=== PATIENT | male | born 1955 | race Caucasian/White ===

== ENCOUNTER 2022-10-24 08:41 | Inpatient (IN) | payer OTHER ==
--- OUTSIDE RECORDS SUMMARY | 2022-10-24 08:47 | XMS REPORT | Continuity of Care Document ---
:1955 Author Organization [facility] t Address [address] [place] [address]. [address] [place] [address] Care Team Providers Name Role Phone PCP, PATIENT DOES NOT HAVE A Primary Care Physician UnavailTeresita Barrientos MD Attending Clinician Unknown, Attending Attending Clinician Unavailable TEREISTA CARDONA Attending Clinician Unavailable Doctor Unassigned, [place] Attending Clinician Unavailable Mac Longo Attending Clinician Radu Aguillon Attending Clinician Pedro Plummer MD Attending Clinician [phone] VISIT, NURSE MAGALYS SLEEP Attending Clinician Unavailable Becka Berrios MA Attending Clinician Unavailable Debbie Espinoza Attending Clinician Pedro Plummer Attending Clinician VISIT, NURSE [place] SLEEP Attending Clinician Unavailable Panchito Santamaria Attending Clinician VISIT, NURSE MAGALYS NIELSEN Attending Clinician Unavailable Tiffanie Alamo Attending Clinician Guanaco Duron Attending Clinician Guanaco Duron Admitting Clinician Payers Payer Name Policy Type Policy Number Effective Date Expiration Date S ource Problems Condition Condition Condition Status Onset Resolution Last Treating Co mments Source Name Details Category Date Date Treatment Clinician Date M23 - M23 - Diagnosis Active 2017-0 2016-07-19 Memoria UNSPECIFIE UNSPECIFIE 07-11 12:58:00 l D INTERNAL D INTERNAL 00:01: He dennys DERANGEME DERANGEME 00 Active 07/11/2016 ELOY [place] Diabetes Diabetes Problem Active 2022-09-22 Memoria mellitus mellitus - 23:02:26 l type 2 type 2 00:00: Shawn (disorder) (disorder) 00 Active 10/28/2014 Problem 09/22/2022 Data migrated from [employer] on 11/11/14. Medical Group,[facility] Internal Medicine [facility] Metabolic Problem Active 2022-09-22 Me moria syndrome X Metabolic 3-24 23:02:26 l (disorder) syndrome X 00:00: He dennys (disorder) 00 Active 06/30/2014 Problem 09/22/2022 Data migrated from [employer] on 10/14/14. Medical Group,[facility] Internal Medicine [facility] 719.41 - 719.41 - Diagnosis Active 2012-05-13 Memoria JOINT JOINT 1-30 12:25:00 l PAIN-SHLD PAIN-SHLD 00:01: Herm yaniv Active 00 05/08/2012 ELOY [place] Hypothyroi Hypothyro Problem Active 2011-042022-09-22 Memoria dism idism 2-26 23:02:26 l (disorder) (disorder) 00:00: He rmann Active 00 04/03/2012 Problem 09/22/2022 Data migrated from [employer] on 09/05/14. Medical Group,[facility] Internal Medicine [facility] No known No known Disease Metho di active active st problems problems Hospit a l Hyperchole Hyperchol Problem Resolve 2021-11-24 Memoria sterolemia esterolemi d 01:45:23 l (disorder) a Serge n (disorder) Resolved Problem 11/24/2021 [facility] [facility] [place] Hypertensi Hypertens Problem Resolve 2021-11-24 Memoria ve charu d 01:45:23 l disorder, disorder, Herm yaniv systemic systemic arterial arterial (disorder) (disorder) Resolved Problem 11/24/2021 Medical Group, [place] 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 01:45:23 l openic thrombocyt Serge n purpura openic (disorder) purpura (disorder) Resolved Problem 11/24/2021 resolved 1960"s Medical Group,[facility] Monoclonal Monoclona Problem Resolve 2021-11-24 Memoria gammopathy l d 01:45:23 l (disorder) gammopathy He rmann (disorder) Resolved Problem 11/24/2021 [facility], [facility] [place] [place] Sleep Sleep Problem Resolve 2021-11-24 Luisito radhika apnea apnea d 01:45:23 l (finding) (finding) Herm yaniv Resolved Problem 11/24/2021 uses cpap machine- will bring on dos Medical Group,[facility] Ankle pain Ankle Problem Active 2022-09-22 M emoria (finding) pain 23:02:26 l (finding) Shawn Active Problem 09/22/2022 [facility] At risk At risk Problem Active 2022-09-22 M emoria for for 23:02:26 l negative negative Serge n response response to to medication medication (finding) (finding) Active Problem 09/22/2022 [facility] Internal Medicine [facility] Benign Benign Problem Active 2022-09-22 Luisito radhika hypertensi hypertensi 23:02:26 l on on Philippi (disorder) (disorder) Active Problem 09/22/2022 Data migrated from [facility] on 09/05/14. [facility] Internal Medicine [facility] Benign Benign Problem Active 2022-09-22 Luisito radhika prostatic prostatic 23:02:26 l hypertroph hypertroph He rmann with with outflow outflow obstructio obstructio n n (disorder) (disorder) Active Problem 09/22/2022 [facility] Osteoarthr Problem Active 2022-09-22 M emoria itis of Osteoarthr 23:02:26 l knee itis of [place]i (disorder) knee (disorder) Active Problem 09/22/2022 Medical Group,[facility] Derangemen Problem Active 2022-09-22 M emoria t of Derangemen 23:02:26 l medial t of [place] meniscus medial (disorder) meniscus (disorder) Active Problem 09/22/2022 Medical Group,[facility] Edema of Edema of Problem Active 2022-09-22 Memoria lower lower 23:02:26 l extremity extremity Herm yaniv (finding) (finding) Active Problem 09/22/2022 Medical Group,[facility] Elevated Elevated Problem Active 2022-09-22 Memoria liver liver 23:02:26 l enzymes enzymes [place] level level (finding) (finding) Active Problem 09/22/2022 Medical Group,[facility] Internal Medicine [place] Foot pain Foot pain Problem Active 2022-09-22 Memoria (finding) (finding) 23:02:26 l Active Shawn Problem 09/22/2022 Medical Group, [facility] [place],[facility] Gastroesop Gastroeso Problem Active 2022-09-22 Memoria hageal phageal 23:02:26 l reflux reflux [place] disease disease (disorder) (disorder) Active Problem 09/22/2022 [facility], [facility] Hyperlipid Problem Active 2022-09-22 M emoria emia Hyperlipid 23:02:26 l (disorder) emia Serge n (disorder) Active Problem 09/22/2022 Medical Group,[facility] Internal Medicine [facility] Lesion of Lesion Problem Active 2022-09-22 Memoria skin of of skin of 23:02:26 l face face [place]i (disorder) (disorder) Active Problem 09/22/2022 Medical Group,[facility] Microalbum Microalbu Problem Active 2022-09-22 Memoria inuria minuria 23:02:26 l (finding) (finding) Herm yaniv Active Problem 09/22/2022 Medical [facility] Nocturia Nocturia Problem Active 2022-09-22 Memoria (finding) (finding) 23:02:26 l Active Shawn Problem 09/22/2022 [facility], [facility] [place] Obesity Obesity Problem Active 2022-09-22 Me moria (disorder) (disorder) 23:02:26 l Active Shawn Problem 09/22/2022 [facility], [facility] [place] Obstructiv Obstructi Problem Active 2022-09-22 Memoria e sleep ve sleep 23:02:26 l apnea apnea Shawn syndrome syndrome (disorder) (disorder) Active Problem 09/22/2022 Data migrated from [facility] on 09/05/14. [facility], [facility] [place],[facility] Internal Medicine [facility] Pain Pain Problem Active 2022-09-22 Memor ia (finding) (finding) 23:02:26 l Active Shawn Problem 09/22/2022 Right knee Medical Group,[facility] Patient Patient Problem Active 2022-09-22 M emoria encounter encounter 23:02:26 l status status Shawn (finding) (finding) Active Problem 09/22/2022 [facility] Internal Medicine [place] Plantar Plantar Problem Active 2022-09-22 Me moria fasciitis fasciitis 23:02:26 l (disorder) (disorder) He rmann Active Problem 09/22/2022 [facility], [facility] [place],[facility] Reducible Problem Active 2022-09-22 Me moria umbilical Reducible 23:02:26 l hernia umbilical Shawn (disorder) hernia (disorder) Active Problem 09/22/2022 [facility] Internal Medicine [place] Skin Skin Problem Active 2022-09-22 Memor ia lesion lesion 23:02:26 l (disorder) (disorder) He rmann Active Problem 09/22/2022 [facility] Urinary Urinary Problem Active 2022-09-22 Me moria incontinen incontinen 23:02:26 l ce ce [place]i (finding) (finding) Active Problem 09/22/2022 [facility] ACUTE ACUTE Diagnosis Active 2016-07-26 Mem oria MEDIAL MEDIAL 10:43:00 l MENISCAL MENISCAL Serge n INJURY OF INJURY OF RIGHT RIGHT KNEE-S89.8 KNEE-S89.8 1XA 1XA Active [place] Essential Essential Diagnosis 2022-08-24 2022-08-24 Memoria hypertensi hypertensi 08-21 09:24:20 09:24:20 l on on 19:56: Shawn (disorder) (disorder) 00 08/21/2022 Diagnosis [facility]20[facility] [place] Type II Type II Diagnosis 2022-08-24 2022-08-24 Memoria diabetes diabetes 08-21 09:24:20 09:24:20 l mellitus mellitus 19:56: Serge n without without 00 complicati complicati on on (disorder) (disorder) 08/21/2022 Diagnosis 08/24/2022 Medical Group,[facility] Internal Medicine [place] Finding of Finding Diagnosis 2022-08-24 2022-08-24 Memoria enzyme of enzyme 08-21 09:24:20 09:24:20 l level level 19:56: Shawn (finding) (finding) 00 08/21/2022 Diagnosis 08/24/2022 [facility] [place] Screening Screening Diagnosis 2022-08-24 2022-08-24 Memoria for for 08-21 09:24:20 09:24:20 l malignant malignant 19:56: Herm yaniv neoplasm neoplasm 00 of colon of colon done done 08/21/2022 Diagnosis 08/24/2022 [facility] Internal Medicine [place] Long-term Long-term Diagnosis 2022-08-24 2022-08-24 Memoria current current 08-21 09:24:20 09:24:20 l use of use of 19:56: Shawn drug drug 00 therapy therapy (situation (situation ) ) 08/21/2022 Diagnosis 08/24/2022 [facility] [place] History of Past Illness Condition Condition Condition Status Onset Resolution Last Treating Co mments Source Name Details Category Date Date Treatment Clinician Date Umbilical Diagnosis 2021-042022-02-23 2022-02-23 Memoria hernia Umbilical 04-22 09:44:28 09:44:28 l (disorder) hernia 20:53: Serge n (disorder) 00 02/20/2022 Diagnosis 02/23/2022 [facility] Internal Medicine [place] Type 2 Type 2 Problem 2021-11-24 2021[facility] diabetes diabetes 11-21 01:45:23 01:45:23 l mellitus mellitus 19:36: Serge n without without 00 complicati complicati ons ons 11/21/2021 Medical Group Hypothyroi Hypothyro Problem 2021-11-24 2021-11-24 Memoria dism, idism, 11-21 01:45:23 01:45:23 l unspecifie unspecifie 19:36: He rmann d d 11/21/2021 Medical Group Metabolic Metabolic Problem 2021-11-24 2021-11-24 [facility] syndrome syndrome 11-21 01:45:23 01:45:23 l 11/21/2021 19:36: Serge aguayo 11/24/2021 00 Medical Group Hyperlipid Hyperlipi Problem 2021-11-24 2021-11-24 Memoria emia, demia, 11-21 01:45:23 01:45:23 l unspecifie unspecifie 19:36: He rmann d d 11/21/2021 11/24/2021 Medical Group Essential Essential Problem 2021-11-24 2021-11-24 Memoria (primary) (primary) 11-21 01:45:23 01:45:23 l hypertensi hypertensi 19:36: He rmann on on 11/21/2021 11/24/2021 Medical Group Proteinuri Proteinur Problem 2021-11-24 2021-11-24 minna Vicente, 11-21 01:45:23 01:45:23 l unspecifie unspecifie 19:36: He rmann d d 00 11/21/2021 11/24/2021 Medical Group Obstructiv Obstructi Problem 2021-11-24 2021-11-24 Nydia e sleep ve sleep 11-21 01:45:23 01:45:23 l apnea apnea 19:36: Shawn (adult) (adult) 00 (pediatric (pediatric ) ) 11/21/2021 Medical Group Other long Other Problem 2021-11-24 2021-11-24 Memoria term continuous churn buttermaker 8 01:45:23 01:45:23 l (current) (current) 19:36: Herm yaniv drug drug 00 therapy therapy 11/21/2021 [facility] Group Abnormal Abnormal Problem 2021-11-24 2021-11-24 Memoria levels of levels of 11-21 01:45:23 01:45:23 l other other 19:36: Shawn serum serum 00 enzymes enzymes 11/21/2021 11/24/2021 Medical Group Gastro-eso Gastro-es Problem 2021-08-18 2021-08-18 Memoria phageal ophageal 08-15 01:48:25 01:48:25 l reflux reflux 21:41: Shawn disease disease 00 without without esophagiti esophagiti s s 08/15/2021 08/18/2021 [facility] Group Allergies, Adverse Reactions, Alerts Allergy Allergy Status Severity Reaction(s) Onset Inactive Treating Comm ents Source Name Type Date Date Clinician IBUPROFE DRUG Active Low Hives Univers N INGREDI 10-23 ity of 00:00: [place] 00 [facility] Ibuprofe Propensi Active Itching Unive rs n ty to 10-23 ity of adverse 00:00: [place] reaction 00 Medical s Branch Ibuprofe Propensi Active Itching Metho di n ty to 10-18 st adverse 00:00: Hospita reaction 00 l s to drug ibuprofe ibuprofe Active Memori a n<sup>1< n<sup>1< 6-29 l /sup> /sup> 05:00: [place] 00 NO KNOWN Drug Active Univers ALLERGIE Class ity of S [facility] Social History Social Habit Start Date Stop Date Quantity Comments Source [facility] [place] [facility] Sexual orientation [facility] History of Social 2021-10-18 2021-10-[address] function 00:00:00 00:00:00 Hospital Tobacco use and 2021-10-18 2021-10-18 Smokeless [place] exposure 00:00:00 00:00:00 tobacco non-user Hospital [facility] 2016-07[facility]28 [facility] 19:17:36 Sex [birth year] Universit y of 00:00:00 00:00:00 [facility] Smoking Status Start Date Stop Date Source Tobacco smoking consumption Univ ersity of [facility] Tobacco smoking status [facility] Medications Ordered Filled Start Stop Current Ordering Indication Dosage Frequency Signature Comments Components Source Medication Medication Date Date Medication? Clinician (SIG) Name Name atorvastati Yes 20mg 1 tablet. U nivers n 20 mg 7-17 ity of tablet 10:55: [address] tadalafiL 5 Yes 5mg Take 1 Univ ers mg tablet 7-17 tablet by ity o f 10:55: mouth. [address] levothyroxi Yes 112ug 1 tablet. Univers ne 112 mcg 7-17 ity of tablet 10:55: [address] cephALEXin 202- Yes [id number] 500mg Take 1 Univers (KEFLEX) 7-17 07-25 capsule by ity of 500 mg 00:00: 04:59 mouth 4 [place] capsule 00 :00 (four) Medical times [place] daily for 7 days. esomeprazol Yes 40mg Take 1 Univ ers e 40 mg 6-18 capsule by ity of capsule 00:00: mouth in [place] 00 the morning. Branch atorvastati Yes = 1 tab, Me moria n 20 mg 5-15 PO, l oral tablet 19:55: Bedtime, # Shawn 00 90 tab, 3 Refill(s), [id number], 180.34, cm, 08/21/22 14:01:00 CDT, Height, 111.364, kg, 08/21/22 14:01:00 CDT, Weight carvedilol Yes 12.5 mg = Me moria 12.5 mg 5-15 1 tab, PO, l oral tablet 19:55: BID, # 180 Shawn 00 tab, 3 Refill(s), [facility]: [id number], 180.34, cm, 08/21/22 14:01:00 CDT, Height, 111.364, kg, 08/21/22 14:01:00 CDT, Weight esomeprazol Yes = 1 cap, Me moria e 40 mg 4-21 PO, Daily, l oral 18:22: # 90 cap, Philippi delayed 00 0 release Refill(s), capsule Pharmacy: [id number], 180.34, cm, 05/22/22 14:21:00 [employer] DES[employer], Height, 113.352, kg, 05/22/22 14:21:00 [employer] DES[employer], Weight atorvastati Yes = 1 tab, Me moria n 20 mg 4-21 PO, l oral tablet 18:22: Bedtime, # Shawn 00 90 tab, 0 Refill(s), Pharmacy: [id number], 180.34, cm, 05/22/22 14:21:00 [employer]OR[employer] DESIGN[employer], Height, 113.352, kg, 05/22/22 14: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 metFORMIN 2021-04 Yes 500 mg = 1 Me moria 500 mg oral 1-14 tab, PO, l tablet 20:53: BID-Meals, Mayra nn 00 # 180 tab, 3 Refill(s), Pharmacy: [id number], 180.34, cm, 02/20/22 14:15:00 [employer]ORIST DESIGNER, Height, 114.091, kg, 02/20/22 14:15:00 [employer]ORIST DESIGNER, Weight atorvastati 2021-04 Yes = 1 tab, Me moria n 20 mg 0-07 PO, l oral tablet 18:33: Bedtime, # Philippi 00 90 tab, 0 Refill(s), [id number], 180.34, cm, 11/21/21 14:16:00 CDT, Height, 113.182, kg, 11/21/21 14:16:00 CDT, Weight carvedilol Yes 12.5 mg = Me moria 12.5 mg 8-15 1 tab, PO, l oral tablet 19:35: BID, # 180 Shawn 00 tab, 3 Refill(s), Pharmacy: [id number], 180.34, cm, 11/21/21 14:16:00 CDT, Height, 113.182, kg, 11/21/21 14:16:00 CDT, Weight Synthroid Yes = 1 tab, Luisito radhika 112 mcg 8-15 PO, Daily, l (0.112 mg) 19:35: # 90 tab, He rmann oral tablet 00 3 Refill(s), Pharmacy: [id number], 180.34, cm, 11/21/21 14:16:00 CDT, Height, 113.182, kg, 11/21/21 14:16:00 CDT, Weight TADALAFIL 2021- No Methodi ORAL 10-1812 st 10:04: 00:00 Hospita 53 :00 l levothyroxi Yes Method i ne - st (SYNTHROID) 09:50: Hospit a 112 mcg 15 l tablet atorvastati Yes Method i n calcium 7- st (ATORVASTAT 09:50: Hospit a IN ORAL) 15 l levothyroxi Yes Method i ne 7-12 st (SYNTHROID) 09:50: Hospit a 112 mcg 15 l tablet atorvastati Yes Method i n calcium 7-12 st (ATORVASTAT 09:50: Hospit a IN ORAL) 15 l tadalafiL 2021- No [id number] 5mg Q24H Take 1 Methodi (CIALIS) 5 -03 16- tablet (5 st MG tablet 00:00: 04:59 mg total) Ho spita 00 :00 by mouth l daily as needed for erectile dysfunctio n for up to 30 days. tadalafiL 2021- No [id number] 5mg Q24H Take 1 Methodi (CIALIS) 5 7 08-12 tablet (5 st MG tablet 00:00: 04:59 mg total) Ho spita 00 :00 by mouth l daily as needed for erectile dysfunctio n for up to 30 days. carvediloL Yes Univers 12.5 mg 7-10 ity of tablet 00:00: [address] metFORMIN Yes Univers 500 mg 7-10 ity of tablet 00:00: [address] metFORMIN Yes Methodi (GLUCOPHAGE 7-10 st ) 500 mg 00:00: Hospita tablet 00 l carvediloL Yes Methodi (COREG) 7 st 12.5 MG 00:00: Hospita tablet 00 l metFORMIN Yes Methodi (GLUCOPHAGE 7-10 st ) 500 mg 00:00: Hospita tablet 00 l carvediloL Yes Methodi (COREG) 7 st 12.5 MG 00:00: Hospita tablet 00 l esomeprazol Yes = 1 cap, Me moria e 40 mg 5-09 PO, Daily, l oral 21:45: # 90 cap [place] delayed 00 3 release Refill(s), capsule Pharmacy: [id number], 180.34, cm, 08/15/21 15:16:00 CDT, Height, 114.545, kg, 08/15/21 15:16:00 CDT, Weight Metformin 2020-04 Yes 500 mg = 1 Me moria hydrochlori 1-16 tab, PO, l de 500 MG 15:44: BID-Meals, He rmann Oral Tablet 00 # 180 tab, 3 Refill(s) metFORMIN 2020-04 Yes 500 mg = 1 Me moria 500 mg oral 1-16 tab, PO, l tablet 15:44: BID-Meals, Mayra nn 00 # 180 tab, 3 Refill(s) atorvastati 2020-04 Yes = 1 tab, Me moria n 20 mg 1-01 PO, l oral tablet 21:13: Bedtime, # Philippi 00 90 tab, 3 Refill(s), [id number], 180.34, cm, 02/07/21 15:15:00 CDT, Height, 115, kg, 02/07/21 15:15:00 CDT, Weight empaglifloz 2020-04 Yes 10 mg = 1 M emoria in 10 MG 1-01 tab, PO, l Oral Tablet 21:13: QAM, # 30 H ermann [Jardiance] 00 tab, 11 Refill(s), Pharmacy: [id number], 180.34, cm, 02/07/21 15:15:00 CDT, Height, 115, kg, 02/07/21 15:15:00 CDT, Weight Levothyroxi Yes = 1 tab, Me moria ne Sodium 9-01 PO, Daily, l 0.112 MG 21:42: # 90 tab, Herm yaniv Oral Tablet 00 3 [Synthroid] Refill(s), Pharmacy: [id number], 180.34, cm, 10/18/20 14:23:00 CDT, Height, 116.023, kg, 10/18/20 14:23:00 CDT, Weight tadalafil 5 Yes = 1 tab, Me moria mg oral 6-01 PO, Daily, l tablet 21:45: INSTR:JESENIA Mayra nn 00 GN PROSTATIC HYPERPLASI A, # 90 tab, 3 Refill(s), [facility]acy[id number], 180.34, cm, 07/12/20 14:50:00 CDT, Height, 113.636, kg, 07/12/20 14:50:00 CDT, Weight Esomeprazol Yes = 1 cap, Me moria e 40 MG 1-25 PO, Daily, l Enteric 14:24: # 90 Shawn Coated 00 unknown Capsule unit, 3 Refill(s), [id number], 180.34, cm, 04/12/20 14:40:00 [employer]ORIST DESIGNER, Height, 114.205, kg, 04/12/20 14:40:00 [employer]ORIST DESIGNER, Weight Levothyroxi Yes = 1 tab, Me moria ne Sodium 9-09 PO, Daily, l 0.112 MG 16:08: # 90 tab, Herm yaniv Oral Tablet 00 3 [Synthroid] Refill(s), CAITY, Pharmacy: [id number], 180.34, cm, 10/30/19 15:11:00 CDT, Height, 116.534, kg, 10/30/19 15:11:00 CDT, Weight tadalafil 5 2019-0 Yes = 1 tab, Me moria mg oral 6-09 PO, Daily, l tablet 16:26: # 90 tab, Serge n 13 Refill(s) 3, INSTR:JESENIA GN PROSTATIC HYPERPLASI A, [id number] tadalafil 5 2018- Yes 5 mg = 1 Me moria MG Oral 4-24 tab, PO, l Tablet 16:51: Daily, Shawn [Cialis] 00 Benign Prostatic Hyperplasi a, # 90 tab, 3 Refill(s), Pharmacy: [id number] atorvastati 2017-04 Yes 20 mg = 1 M emoria n 20 mg 2-18 tab, PO, l oral tablet 13:54: Bedtime, # Shawn 00 90 tab, 3 Refill(s), Pharmacy: [id number] Levothyroxi Yes 112 Memori a ne Sodium 9-24 microgram l 0.112 MG 20:58: = 1 tab, Mayra nn Oral Tablet 00 PO, Daily, [Synthroid] Brand Name Medically Necessary, # 90 tab, 3 Refill(s), CAITY, [id number] nebivolol 5 2017-0 Yes 5 mg = 1 Me moria MG Oral 6-15 tab, PO, l Tablet 15:23: Daily, Shawn [Bystolic] 54 Please fax to [facility] [phone], # 90 tab, 2 Refill(s), [id number] Promethazin No Notes: Do M emoria e 08-02 not give l 20:08: IV push. Shawn 00 (Same as: Phenergan) Ondansetron No Notes: Luisito radhika 08-02 (Same as: l 20:08: Zofran) Shawn 00 MEDICATION WASTE Product Size: 4 mg Product Wasted: ___ mg Dexamethaso No Notes: Luisito radhika ne 08-02 Concentrat l 20:08: ion: Shawn 4mg/ml Morphine No Notes: Memoria 08-02 (Same l 20:08: as:MORPhin e Sulfate) Hydromorpho No Notes: Luisito radhika ne 08-02 Same as l 20:08: Dilaudid Acetaminoph No Notes: Max Memoria en 08-02 acetaminop l 20:08: hen 4000 Shawn 00 mg/day (4 gm/day). (Same as: Tylenol Extra Strength) Naloxone No Notes: Memoria 08-02 Same as l 20:08: Narcan Flumazenil No Notes: Memor ia 08-02 (Same as: l 20:08: Romazicon) Labetalol No Notes: Memori a 08-02 (Same as: l 20:08: Normodyne, Shawn 00 Trandate) Push over 2 minutes Give bolus over 2-3 minutes. ANES No Notes: Memoria Enalaprilat 08-02 (Same as: l 20:08: Vasotec-IV ) Hydromorpho No Notes: Luisito radhika ne 08-02 Same as l 20:01: Dilaudid Morphine No Notes: Memoria 08-02 (Same l 20:01: as:MORPhin e Sulfate) acetaminoph No Notes: Do M emoria en-codeine 08-02 not exceed l #3 20:01: 4gm/day of Shawn acetaminop hen. (Same as: Tylenol with Codeine # 3) Acetaminoph No Notes: Do M emoria en - not exceed l 20:01: 4 gm/day. Shawn (Same as: Tylenol) Acetaminoph Yes 1 - 2 tab, Memoria en 300 MG / 08-02 PO, Q4H, l Codeine 19:59: PRN Pain, Mayra nn Phosphate 00 X 14 day, 60 MG Oral # 50 tab, Tablet 0 [Tylenol Refill(s) with Codeine #4] Cephalexin Yes 500 mg = 1 M emoria 500 MG Oral 08-02 cap, PO, l Capsule 19:59: QID, X 3 Serge n [Keflex] 00 day, # 12 cap, 0 Refill(s) ondansetron No Route: IV, Memoria (ANES) 08-02 Drug form: l 19:51: INJ, ONCE, Stop date: 08/02/16 14:51:00 CDT dexamethaso No Route: IV, Memoria ne (ANES) 08-02 Drug form: l 19:50: INJ, ONCE, Stop date: 08/02/16 14:50:00 CDT ceFAZolin No Route: IV, Me moria (ANES) 08-02 Drug form: l 19:36: INJ, ONCE, Stop date: 08/02/16 14:36:00 CDT propofol No Route: IV, Mem oria (ANES) 08-02 Drug form: l 19:36: INJ, ONCE, Stop date: 08/02/16 14:36:00 CDT fentaNYL No Route: IV, Mem oria (ANES) 08-02 Drug form: l 19:35: INJ, ONCE, Stop date: 08/02/16 14:35:00 CDT lidocaine No Route: IV, Me moria (ANES) 08-02 Drug form: l 19:35: INJ, ONCE, Stop date: 08/02/16 14:35:00 CDT midazolam No Route: IV, Me moria (ANES) 08-02 Drug form: l 19:30: SOLN, 00 ONCE, Stop date: 08/02/16 14:30:00 CDT LR 1000 mL No Route: IV, M emoria INJ (ANES) 08-02 Total l 18:54: Volume: Philippi 00 1,000, Start date: 08/02/16 13:54:00 CDT, Stop date: 08/02/16 14:54:00 CDT Tylenol No 1,000 mg, Memor ia 08-02 Route: PO, l 18:00: ONCALL, Dosing Weight 115.455, kg, Start date: 08/02/16 13:00:00 CDT Lidocaine No Notes: Memori a Hydrochlori 08-02 Preservati l de 10 MG/ML 16:00: ve free. He rmann Injectable (Same as: Solution Xylocaine MPF) Calcium No 1,000 mL, Memor ia Chloride 08-02 Rate: 25 l 0.0014 15:40: ml/hr, Shawn MEQ/ML / 00 Infuse Potassium over: 40 Chloride hr, Route: 0.004 IV, Dosing MEQ/ML / Weight Sodium 113.636 Chloride kg, Total 0.103 Volume: MEQ/ML / 1,000, Sodium Start Lactate date: 0.028 08/02/16 MEQ/ML 10:40:00 Injectable CDT, Solution Duration: 30 day, Stop date: 09/01/16 10:39:00 CDT Neurontin No Notes: Memori a 08-02 (Same as: l 11:00: Neurontin) vancomycin No 2001 mg: Me moria + sodium 08-02 infuse l chloride 11:00: over 2.5 Mayra nn 0.9% 500 mL 00 hours INJ (for IV MEDICATION set) 500 mL WASTE Product Size: 1000 mg Product Wasted: ___ mg ceFAZolin No Notes: Memori a 08-02 Same as: l 11:00: Ancef BD Normal No Notes: Memori a Saline 08-02 (Same as: l Flush 11:00: BD Posiflush) oxyCONTIN No Notes: Do Mem oria 08-02 not crush l 11:00: or chew. (Same as: OxyContin) Centrum Yes 1 tab, PO, Luisito radhika Silver -21 Daily, 0 l Men's 19:10: Refill(s) acetaminoph Yes 1,000 mg, M emoria en -21 PO, Daily, l 19:10: as needed Shawn 00 for pain, 0 Refill(s) Acetaminoph 2017-0 Yes 0 Memori a en 4-21 Refill(s) l 19:10: Shawn 00 Immunizations Ordered Immunization Filled Immunization Date Status Commen ts Source Name Name influenza virus 2022-01-09 Completed [facility] vaccine, inactivated 00:00:00 [facility] COVID-19 MRNA 2021-10-28 Completed Meth odist VACCINATION 00:00:00 [facility] PFIZER COVID-19 MRNA 2021-10-28 Completed Meth odist VACCINATION 00:00:00 [facility] [id number] 2021-10-28 Completed Luisito rial Shawn [id number] 00:00:00 [facility] COVID-19 MRNA 2021-03-08 Completed Meth odist VACCINATION 00:00:00 [facility] COVID-19 MRNA 2021-03-08 Completed Meth odist VACCINATION 00:00:00 [facility] [id number] 2021-03-08 Completed Luisito riavitaly Escobar [id number] 00:00:00 influenza virus 2021-01-10 Completed [facility] vaccine, inactivated 00:00:00 [facility] COVID-19 2020-06-05 Completed Method[facility] t MRNA VACCINATION 00:00:00 [facility] COVID-19 2020-06-05 Completed Methodis t MRNA VACCINATION 00:00:00 [facility] [id number] 2020-06-05 Completed Luisito sophia Escobar [id number]<meyers 00:00:00 p>1</sup> [id number] 2020-06-05 Completed Luisito sophia Escobar [id number]<meyers 00:00:00 p>3</sup> [facility] COVID-19 2020-05-08 Completed Method[facility] t MRNA VACCINATION 00:00:00 [facility] COVID-19 2020-05-08 Completed Methodis t MRNA VACCINATION 00:00:00 [facility] [id number] 2020-05-08 Completed Luisito sophia Escobar [id number]<meyers 00:00:00 p>2</sup> [id number] 2020-05-08 Completed Luisito Escobar [id number]<meyers 00:00:00 p>4</sup> influenza virus 2020-02-10 Completed [facility] vaccine, 00:00:00 inactivated<sup>3</s up> influenza virus 2020-02-10 Completed [facility] vaccine, 00:00:00 inactivated<sup>1</s up> influenza virus 2019-02-05 Completed [facility] vaccine, 00:00:00 inactivated<sup>1</s up> influenza virus 2019-02-05 Completed [facility] vaccine, 00:00:00 inactivated<sup>4</s up> influenza virus 2019-02-05 Completed [facility] vaccine, 00:00:00 inactivated<sup>2</s up> Vital Signs Vital Name Observation Time Observation Value Comments Source Systolic blood 2022-10-23 15:50:00 135 mm[Hg] Univer sity of pressure [facility] Diastolic blood 2022-10-23 15:50:00 83 mm[Hg] Unive rsity of [facility] Heart rate 2022-10-23 15:50:00 78 /min [facility] Body temperature 2022-10-23 15:50:00 36.72 [facility] Respiratory rate 2022-10-23 15:50:00 18 /min [facility] Body height 2022-10-23 15:50:00 180.3 cm [facility] Body weight 2022-10-23 15:50:00 111.63 kg [facility] BMI 2022-10-23 15:50:00 34.32 kg/m2 [facility] Oxygen saturation in 2022-10-23 15:50:00 98 /min [facility] Arterial blood by [facility] Pulse oximetry Branch Temperature Oral (F) 2022-08-21 19:01:00 97.5 F [facility] Heart Rate 2022-08-21 19:01:00 [facility] Systolic (mm Hg) 2022-08-21 19:01:00 Luisitocedric cortes Philippi Diastolic (mm Hg) 2022-08-21 19:01:00 Mem o[facility] [place] Height 2022-08-21 19:01:00 5 [ft_i] [facility] Weight 2022-08-21 19:01:00 [facility] BMI Calculated 2022-08-21 19:01:00 Memori al [place] Heart Rate 2022-05-22 20:21:00 [facility] Systolic (mm Hg) 2022-05-22 20:21:00 Luisito rial Philippi Diastolic (mm Hg) 2022-05-22 20:21:00 [facility] o[facility] [place] Height 2022-05-22 20:21:00 5 [ft_i] [facility] Weight 2022-05-22 20:21:00 [facility] BMI Calculated 2022-05-22 20:21:00 Memori al [place] Temperature Oral (F) 2022-02-20 20:15:00 97.8 F [facility] Heart Rate 2022-02-20 20:15:00 [facility] Systolic (mm Hg) 2022-02-20 20:15:00 Luisito rial Shawn Diastolic (mm Hg) 2022-02-20 20:15:00 Mem orial Shawn Height 2022-02-20 20:15:00 5 [ft_i] [facility] Weight 2022-02-20 20:15:00 [facility] BMI Calculated 2022-02-20 20:15:00 Memori al Shawn Temperature Oral (F) 2022-02-09 18:12:00 98.0 F [facility] Heart Rate 2022-02-09 18:12:00 [facility] Systolic (mm Hg) 2022-02-09 18:12:00 Luisito rial Philippi Diastolic (mm Hg) 2022-02-09 18:12:00 [facility] o[facility] [place] Height 2022-02-09 18:12:00 5 [ft_i] [facility] Weight 2022-02-09 18:12:00 [facility] BMI Calculated 2022-02-09 18:12:00 [facility]ori al [place] Temperature Oral (F) 2021-11-21 19:16:00 98.1 F [facility] Heart Rate 2021-11-21 19:16:00 [facility] Systolic (mm Hg) 2021-11-21 19:16:00 Luisito rial Shawn Diastolic (mm Hg) 2021-11-21 19:16:00 Mem orial Shawn Height 2021-11-21 19:16:00 180.34 cm [facility] Weight 2021-11-21 19:16:00 [facility] BMI Calculated 2021-11-21 19:16:00 Memori al Shawn Temperature Oral (F) 2021-08-15 20:16:00 98.4 F [facility] Heart Rate 2021-08-15 20:16:00 [facility] Systolic (mm Hg) 2021-08-15 20:16:00 Luisito rial Philippi Diastolic (mm Hg) 2021-08-15 20:16:00 Mem orial Shawn Height 2021-08-15 20:16:00 180.34 cm [facility] Weight 2021-08-15 20:16:00 [facility] BMI Calculated 2021-08-15 20:16:00 Memori al Shawn Temperature Oral (F) 2021-05-16 20:41:00 97.9 F [facility] Heart Rate 2021-05-16 20:41:00 [facility] Systolic (mm Hg) 2021-05-16 20:41:00 Luisito rial Philippi Diastolic (mm Hg) 2021-05-16 20:41:00 Mem orial Shawn Height 2021-05-16 20:41:00 180.34 cm [facility] Weight 2021-05-16 20:41:00 [facility] BMI Calculated 2021-05-16 20:41:00 Memori al [place] Temperature Oral (F) 2021-02-10 18:23:00 98.0 F [facility] Heart Rate 2021-02-10 18:23:00 [facility] Systolic (mm Hg) 2021-02-10 18:23:00 Luisito rial Philippi Diastolic (mm Hg) 2021-02-10 18:23:00 Mem orial [place]i Height 2021-02-10 18:23:00 180.34 cm [facility] Weight 2021-02-10 18:23:00 [facility] BMI Calculated 2021-02-10 18:23:00 Memori al Shawn Temperature Oral (F) 2021-02-07 20:15:00 98.3 F [facility] Heart Rate 2021-02-07 20:15:00 [facility] Systolic (mm Hg) 2021-02-07 20:15:00 Luisito rial Philippi Diastolic (mm Hg) 2021-02-07 20:15:00 Mem orial Shawn Height 2021-02-07 20:15:00 180.34 cm [facility] Weight 2021-02-07 20:15:00 [facility] BMI Calculated 2021-02-07 20:15:00 Memori al Shawn Systolic (mm Hg) 2020-10-18 19:23:00 Luisito rial Philippi Diastolic (mm Hg) 2020-10-18 19:23:00 Mem orial [place] Heart Rate 2020-10-18 19:23:00 [facility] Height 2020-10-18 19:23:00 180.34 cm [facility] Weight 2020-10-18 19:23:00 [facility] BMI Calculated 2020-10-18 19:23:00 Memori al [place] Systolic (mm Hg) 2020-09-21 15:19:00 Luisito rial Shawn Diastolic (mm Hg) 2020-09-21 15:19:00 Mem orial Shawn Heart Rate 2020-09-21 15:19:00 [facility] Height 2020-09-21 15:19:00 180.34 cm [facility] Weight 2020-09-21 15:19:00 [facility] BMI Calculated 2020-09-21 15:19:00 Memori al [place] Systolic (mm Hg) 2020 19:50:00 Luisito rial Philippi Diastolic (mm Hg) 2020 19:50:00 Mem orial Philippi Heart Rate 2020 19:50:00 [facility] Temperature Oral (F) 2020 19:50:00 98.5 F [facility] Height 2020 19:50:00 180.34 cm [facility] Weight 2020 19:50:00 [facility] BMI Calculated 2020 19:50:00 Memori al Shawn Systolic (mm Hg) 2020-04-12 20:40:00 Luisito rial Shawn Diastolic (mm Hg) 2020-04-12 20:40:00 Mem orial [place]i Heart Rate 2020-04-12 20:40:00 [facility] Height 2020-04-12 20:40:00 180.34 cm [facility] Weight 2020-04-12 20:40:00 [facility] BMI Calculated 2020-04-12 20:40:00 Memori al Shawn Systolic (mm Hg) 2020-01-12 19:45:00 Luisito rial Philippi Diastolic (mm Hg) 2020-01-12 19:45:00 Mem orial [place] Heart Rate 2020-01-12 19:45:00 [facility] Height 2020-01-12 19:45:00 180.34 cm [facility] Weight 2020-01-12 19:45:00 [facility] BMI Calculated 2020-01-12 19:45:00 Memori al Shawn Systolic (mm Hg) 2019-10-30 20:11:00 Luisito rial Philippi Diastolic (mm Hg) 2019-10-30 20:11:00 Mem o[facility] Heart Rate 2019-10-30 20:11:00 [facility] Temperature Oral (F) 2019-10-30 20:11:00 98.2 F [facility] Height 2019-10-30 20:11:00 180.34 cm [facility] Weight 2019-10-30 20:11:00 [facility] BMI Calculated 2019-10-30 20:11:00 [facility] [place] Systolic (mm Hg) 2019-10-13 18:57:00 Luisito rial Philippi Diastolic (mm Hg) 2019-10-13 18:57:00 Mem orial Shawn Heart Rate 2019-10-13 18:57:00 [facility] Temperature Oral (F) 2019-10-13 18:57:00 98.0 F [facility] Height 2019-10-13 18:57:00 180.34 cm [facility] Weight 2019-10-13 18:57:00 [facility] BMI Calculated 2019-10-13 18:57:00 Memori al [place] Systolic (mm Hg) 2019-09-22 16:08:00 Luisito rial Philippi Diastolic (mm Hg) 2019-09-22 16:08:00 Mem orial [facility]i Heart Rate 2019-09-22 16:08:00 [facility] Height 2019-09-22 16:08:00 180.34 cm [facility] Weight 2019-09-22 16:08:00 [facility] BMI Calculated 2019-09-22 16:08:00 Memori al Shawn Systolic (mm Hg) 2019-06-09 20:00:00 Luisito rial Philippi Diastolic (mm Hg) 2019-06-09 20:00:00 Mem orial Shawn Heart Rate 2019-06-09 20:00:00 [facility] Temperature Oral (F) 2019-06-09 20:00:00 98.9 F [facility] Height 2019-06-09 20:00:00 180.34 cm [facility] Weight 2019-06-09 20:00:00 [facility] BMI Calculated 2019-06-09 20:00:00 Memori al Shawn Systolic (mm Hg) 2019-02-10 19:58:00 Luisito rial Shawn Diastolic (mm Hg) 2019-02-10 19:58:00 Mem orial Shawn Heart Rate 2019-02-10 19:58:00 [facility] Temperature Oral (F) 2019-02-10 19:58:00 98.3 F [facility] Height 2019-02-10 19:58:00 180.34 cm [facility] BMI Calculated 2018-10-14 18:08:00 Memori al Shawn Weight 2018-10-14 18:08:00 [facility] Height 2018-10-14 18:08:00 180.34 cm [facility] Heart Rate 2018-10-14 18:08:00 [facility] Temperature Oral (F) 2018-10-14 18:08:00 98.3 F [facility] Systolic (mm Hg) 2018-10-14 18:08:00 Luisito rial Philippi Diastolic (mm Hg) 2018-10-14 18:08:00 Mem orial Philippi Weight 2018-10-01 18:08:00 [facility] Height 2018-10-01 18:08:00 180.34 cm [facility] BMI Calculated 2018-10-01 18:08:00 Memori al Shawn Temperature Oral (F) 2018-10-01 18:08:00 97.8 F [facility] Heart Rate 2018-10-01 18:08:00 [facility] Systolic (mm Hg) 2018-10-01 18:08:00 Luisito rial Philippi Diastolic (mm Hg) 2018-10-01 18:08:00 Mem orial Shawn Weight 2018-09-26 17:54:00 [facility] Heart Rate 2018-09-26 17:54:00 [facility] Systolic (mm Hg) 2018-09-26 17:54:00 Luisito rial Shawn Diastolic (mm Hg) 2018-09-26 17:54:00 Mem o[facility]i Weight 2018-07-31 16:14:00 [facility] BMI Calculated 2018-07-31 16:14:00 Memori al [place] Height 2018-07-31 16:14:00 180.34 cm [facility] Temperature Oral (F) 2018-07-31 16:14:00 98.0 F [facility] Heart Rate 2018-07-31 16:14:00 [facility] Shawn Systolic (mm Hg) 2018-07-31 16:14:00 Luisito rial Shawn Diastolic (mm Hg) 2018-07-31 16:14:00 Mem orial Shawn BMI Calculated 2018-06-10 19:12:00 Memori al [place]i Weight 2018-06-10 19:12:00 [facility] Height 2018-06-10 19:12:00 180.34 cm [facility] Temperature Oral (F) 2018-06-10 19:12:00 98.1 F [facility] Heart Rate 2018-06-10 19:12:00 [facility] Systolic (mm Hg) 2018-06-10 19:12:00 Luisito rial Philippi Diastolic (mm Hg) 2018-06-10 19:12:00 Mem orial Shawn Height 2018-02-04 18:31:00 180.34 cm [facility] BMI Calculated 2018-02-04 18:31:00 Memori al [place] Weight 2018-02-04 18:31:00 [facility] Temperature Oral (F) 2018-02-04 18:31:00 98.5 F [facility] Heart Rate 2018-02-04 18:31:00 [facility] Systolic (mm Hg) 2018-02-04 18:31:00 Luisito rial Shawn Diastolic (mm Hg) 2018-02-04 18:31:00 Mem orial Shawn Height 2017-10-01 14:34:00 180.34 cm [facility] Heart Rate 2017-10-01 14:34:00 [facility] Temperature Oral (F) 2017-10-01 14:34:00 98.0 F [facility] BMI Calculated 2017-10-01 14:34:00 Memori al Shawn Weight 2017-10-01 14:34:00 [facility] Systolic (mm Hg) 2017-10-01 14:34:00 Luisito rial Shawn Diastolic (mm Hg) 2017-10-01 14:34:00 [facility] o[facility] Heart Rate 2017-09-20 19:01:00 [facility] Systolic (mm Hg) 2017-09-20 19:01:00 Luisito rial Philippi Diastolic (mm Hg) 2017-09-20 19:01:00 Mem orial Shawn Weight 2017-09-20 19:01:00 [facility] BMI Calculated 2017-06-04 21:43:00 Memori al [place] Weight 2017-06-04 21:43:00 [facility] Height 2017-06-04 21:43:00 180.34 cm [facility] Temperature Oral (F) 2017-06-04 21:43:00 98.1 F [facility] Respitory Rate 2017-06-04 21:43:00 Memori al [facility] Heart Rate 2017-06-04 21:43:00 [facility] Systolic (mm Hg) 2017-06-04 21:43:00 Luisito rial Philippi Diastolic (mm Hg) 2017-06-04 21:43:00 Mem o[facility] Shawn Height 2017-05-14 16:52:00 182.88 cm [facility] Weight 2017-05-14 16:52:00 [facility] BMI Calculated 2017-05-14 16:52:00 Memori al [facility] Heart Rate 2017-05-14 16:52:00 [facility] Temperature Oral (F) 2017-05-14 16:52:00 98.4 F [facility] Systolic (mm Hg) 2017-05-14 16:52:00 Luisito rial Shawn Diastolic (mm Hg) 2017-05-14 16:52:00 Mem o[facility]i Height 2017-03-06 15:30:00 180.34 cm [facility] BMI Calculated 2017-03-06 15:30:00 Memori al Shawn Weight 2017-03-06 15:30:00 [facility] Heart Rate 2017-03-06 15:30:00 [facility] Temperature Oral (F) 2017-03-06 15:30:00 98.2 F [facility] Systolic (mm Hg) 2017-03-06 15:30:00 Luisito rial Philippi Diastolic (mm Hg) 2017-03-06 15:30:00 Mem orial Shawn Systolic (mm Hg) 2016-08-02 21:15:00 Luisito rial Shawn Diastolic (mm Hg) 2016-08-02 21:15:00 Mem o[facility]i Respitory Rate 2016-08-02 20:45:00 Memori al Shawn Systolic (mm Hg) 2016-08-02 20:45:00 Luisito rial Shawn Diastolic (mm Hg) 2016-08-02 20:45:00 Mem orial Shawn Respitory Rate 2016-08-02 20:30:00 Memori al Shawn Systolic (mm Hg) 2016-08-02 20:30:00 Luisito rial Philippi Diastolic (mm Hg) 2016-08-02 20:30:00 Mem orial [facility]i Respitory Rate 2016-08-02 20:15:00 Memori al Shawn Heart Rate 2016-08-02 15:50:00 [facility] Weight 2016-08-02 15:30:00 [facility] BMI Calculated 2016-08-02 15:30:00 Memori al [place] Height 2016-07-28 18:38:00 180.34 cm [facility] Shawn Procedures Procedure Date / Time Performing Clinician Source Performed ASSIGNMENT OF BENEFITS 2022-10-23 15:39:16 Doctor Unassigned, No [facility] [id number] 2022-04-18 15:45:07 Pedro Plummer POC URINALYSIS DIPSTICK 2022-04-18 15:39:01 Dinh [facility] Radu PROSTATE SPECIFIC 2021-10-18 [facility]:12[facility] POC URINALYSIS DIPSTICK 2021-10-18 14:54:00 Dinh [facility] Radu [id number] 2021-10-18 14:53:00 Pedro Plummer Diabetic retinal eye 2021-02-21 06:00:00 Carolynoria vitaly Escobar exam<sup>1</sup> Measurement of 2020-09-21 15:26:00 Alyssa lucas post-voiding residual urine and/or bladder capacity by ultrasound, non-imaging Diabetic retinal eye 2020-02-03 05:00:00 Nydia haider Philippi exam<sup>2</sup> Diabetic retinal eye 2018-02-05 05:00:00 Nydia Escobar exam Diabetic foot 2017-02-07 00:00:00 [facility] lucas examination Rotator cuff repair 2012-06-14 06:00:00 [facility] Colonoscopy 2011-11-03 05:00:00 [facility] lucas Vasectomy [facility] Splenectomy [facility] Biopsy [facility] Tooth<sup>4</sup> [facility] Mayra nn Arthroscopy of knee Alyssa lucas Plan of Care Planned Activity Planned Date Details Comments Source Future Scheduled 2022-10-12 Screening for [facility] Test 12:23:13 malignant neoplasm of colon (procedure) [code = 781530815] Future Scheduled 2022-10-12 Screening for [facility] Test 12:23:13 malignant neoplasm of colon (procedure) [code = 576170082] Future Scheduled 2022-10-12 Screening for [facility] Test 12:23:13 malignant neoplasm of colon (procedure) [code = 064612421] Future Scheduled 2022-10-12 Hepatitis C screening [facility] Test 12:23:13 (procedure) [code = 390737866] Future Scheduled 2022-10-12 Screening for [facility] Test 12:23:13 malignant neoplasm of colon (procedure) [code = 586789470] Future Scheduled 2022-10-12 Screening for [facility] Test 12:23:13 malignant neoplasm of colon (procedure) [code = 813311145] Future Scheduled 2022-10-12 SHINGLES VACCINES (1 [facility] Test 12:23:13 of 2) [code = SHINGLES VACCINES (1 of 2)] Future Scheduled 2022-10-12 65+ [address]UM[address] [facility] Test 12:23:13 VACCINE (1 - PCV) [code = 65+ PNEUMOCOCCAL VACCINE (1 - PCV)] Future Scheduled 2022-10-12 COVID-19 VACCINE (5 - [facility] Test 12:23:13 Moderna series) [code = COVID-19 VACCINE (5 - Moderna series)] Future Scheduled 2022-10-12 INFLUENZA VACCINE [facility] Test 12:23:13 [code = INFLUENZA VACCINE] Future Scheduled 2022-01-06 HEPATITIS B VACCINES Met [facility] Test 02:23:28 (1 of 3 - 3-dose series) [code = HEPATITIS B VACCINES (1 of 3 - 3-dose series)] Future Scheduled 2022-01-06 Hepatitis C screening [facility] Test 02:23:28 (procedure) [code = 335452334] Future Scheduled 2022-01-06 COLONOSCOPY SCREENING [facility] Test 02:23:28 [code = COLONOSCOPY SCREENING] Future Scheduled 2022-01-06 SHINGLES VACCINES (1 [facility] Test 02:23:28 of 2) [code = SHINGLES VACCINES (1 of 2)] Future Scheduled 2022-01-06 65+ [facility]AL [facility] 02:23:28 VACCINE (1 - PCV) [code = 65+ PNEUMOCOCCAL VACCINE (1 - PCV)] Future Scheduled 2022-01-06 INFLUENZA VACCINE [facility] Test 02:23:28 [code = INFLUENZA VACCINE] Future Scheduled 2022-01-06 COVID-19 VACCINE (5 - [facility] Test 02:23:28 Booster for Moderna series) [code = COVID-19 VACCINE (5 - Booster for Moderna series)] Encounters Start End Encounter Admission Attending Care Care Encounter Source Date/Time Date/Time Type Type Clinicians Facility Department ID 2023-02-08 2023-02-08 Outpatient JUAN MARTINEZ [id number] [facility] 13:15:00 13:15:00 77 vitaly Escobar 2022-12-25 2022-12-25 Outpatient JENNIFER MARTINEZ [id number] [facility] 13:50:00 13:50:00 83 vitaly Escoabr 2022-12-18 2022-12-18 Outpatient JENNIFER MARTINEZ [id number] [facility] 12:00:00 12:00:00 84 vitaly Escobar 2022-12-07 2022-12-07 Outpatient JENNIFER MARTINEZ [id number] [facility] 08:20:00 08:20:00 87 vitaly Escobar 2022-11-20 2022-11-20 Outpatient JENNIFER MARTINEZ [id number] [facility] 13:50:00 13:50:00 85 vitaly Escobar 2022-11-13 2022-11-13 Outpatient [facility] IE [id number] [facility] 08:00:00 08:00:00 86 l Shawn 2022-10-23 2022-10-23 Urgent Teresita Cardona [facility] [id number] Univers 10:20:00 10:40:00 Care Unknown, Attending HEALTH [id number] ity of [place] 4.2.7.2.686 Pedro as NORBERTO?BLEA [id number] [address] MEDICAL OFFICE BUILDING 2022-10-23 2022-10-23 Outpatient R STEPHANIE [facility] [id number] Univers 10:20:00 10:20:[address] [facility] 2022-10-23 2022-10-23 Orders Doctor TYLER [id number] Univers 00:00:00 00:00:00 Only Unassigned, JACKIE 350.1.13.[address] [place] [facility] 4.2.7.2.686 Pedro as [id number] [address] 2022-09-20 2022-09-20 Ambulatory [facility] MG [id number] Memoria 14:40:00 14:40:00 Pre-Reg Gastroenter 82 l gold Martinez 2022-09-20 2022-09-20 Outpatient MH[facility] IE [id number] [facility] 09:40:00 09:40:00 82 l Shawn 2022-09-20 2022-09-20 [facility] [id number] 09:40:00 09:40:00 Nadim Obi 82 2022-08-21 2022-08-22 Outpatient [facility] MG [id number] [facility] 19:10:00 04:59:59 Internal 80 l Medicine Shawn Martinez 2022-08-21 2022-08-21 [id number] 14:10:00 23:59:59 , Radu Talbert 2022-08-21 2022-08-21 Outpatient [facility]IE MHIE [id number] [facility]oria 14:10:00 14:10:00 80 vitaly Escobar 2022-08-16 2022-08-17 Between [facility]IE MG [id number] Memoria 10:54:22 10:54:22 Visit Internal 56 l Medicine Shawn Martinez 2022-08-16 2022-08-17 Outpatient [facility] [id number] 05:54:22 05:54:22 56 2022-08-14 2022-08-14 Outpatient MHIE MHIE [id number] [facility] 13:15:00 13:15:00 81 vitaly Shawn 2022-05-22 2022-05-23 Outpatient [facility] MG [id number] [facility]oria 20:30:00 05:59:59 [facility] 78 [facility] 2022-05-22 2022-05-[address] [id number] 14:30:00 23:59:59 , Radu Ace Talbert 2022-05-22 2022-05-22 Outpatient MHIE MHIE [id number] Memoria 14:30:00 14:30:00 78 Shawn 2022-05-18 2022-05-19 Between IE MG [id number] Memoria 13:33:53 13:33:53 Visit Internal 55 l Medicine Philippi Martinez 2022-05-18 2022-05-19 Outpatient [facility] MH[facility] [id number] 07:33:53 07:33:53 55 2022-05-15 2022-05-15 Outpatient MHIE MHIE [id number] Memoria 12:15:00 12:15:00 79 vitaly Shawn 2022-05-12 2022-05-14 Phone MHIE MG [id number] Memoria 20:06:52 05:59:59 Message Internal 17 l Medicine Shawn Melgarberg 2022-05-12 2022-05-13 Outpatient [facility] MH[facility] [id number] 14:06:52 23:59:59 17 2022-04-18 2022-04-18 Office Ann Plummer2.840.1 [id number] [facility] 09:45:00 09:55:30 Visit Pedro [id number] [place] 3.430.2.7 Hospit a .[id number] l .8 2022-04-18 2022-04-18 Outpatient DINH [facility] [id number] [place] 00:00:00 00:00:[address] 2022-04-18 2022-04-18 Travel 1.2.840.1 [id number] Methodi 00:00:00 00:00:[address] 3.430.2.7 0.2.7.3.698 Ho spita .3.309855 084.8 l .8 2022-02-20 2022-02-21 Outpatient IE [facility] [id number] Memoria 20:30:00 05:59:59 Internal 75 l Medicine Shawn Martinez 2022-02-20 2022-02-20 Outpatient [facility] [id number] 14:30:00 23:59:59 , Radu 75 Nitish 2022-02-20 2022-02-20 Outpatient IE IE [id number] Memoria 14:30:00 14:30:00 75 vitaly Escobar 2022-02-14 2022-02-15 Between [facility]Flavo [facility] [facility] [id number] Memoria 12:24:41 12:24:41 Visit r Internal 53 l Medicine Shawn Martinez 2022-02-14 2022-02-15 Outpatient [facility] [id number] 06:24:41 06:24:41 53 2022-02-13 2022-02-13 Outpatient IE IE [id number] Memoria 12:15:00 12:15:00 76 l Shawn 2022-02-09 2022-02-10 Outpatient nullFlavo [facility] [id number] Memoria 18:15:00 04:59:59 r Internal 70 l Medicine Shawn Martinez 2022-02-09 2022-02-09 Outpatient VISIT, [facility] [id number] 13:15:00 23:59:59 NURSE STRB 70 SLEEP 2022-02-09 2022-02-09 Outpatient IE IE [id number] Memoria 13:15:00 13:15:00 70 l Shawn 2021-11-21 2021-11-22 Outpatient nullFlavo [facility] [id number] Memoria 19:10:00 04:59:59 r Internal 73 l Medicine Shawn Martinez 2021-11-21 2021-11-21 [id number] 14:10:00 23:59:59 , Radu Talbert 2021-11-21 2021-11-21 Outpatient MHIE MHIE [id number] Memoria 14:10:00 14:10:00 73 vitaly Escobar 2021-11-15 2021-11-16 Between nullFlavo [facility] [id number] Memoria 22:05:40 22:05:40 Visit r Internal 52 l Medicine [facility] 2021-11-15 2021-11-16 Outpatient [facility] MG [id number] 17:05:40 17:05:40 52 2021-11-15 2021-11-16 Between nullFlavo MG [id number] Memoria 11:07:46 11:07:46 Visit r Internal 51 l Medicine Philippi [place] 2021-11-15 2021-11-16 Outpatient MG MG [id number] 06:07:46 06:07:46 51 2021-11-14 2021-11-14 Outpatient MHIE MHIE [id number] Memoria 14:00:00 14:00:00 74 vitaly Shawn 2021-10-18 2021-10-18 Office Dinh, 1.2.840.1 [id number] Methodi 09:30:00 10:08:19 Visit Pedro 27929.1.[address] Radu 3.430.2.7 Hospit a .3.333397 l .8 2021-10-18 2021-10-18 Telephone Agustina, 1.2.840.1 [id number] Methodi 00:00:00 00:00:[address] 3.430.2.7 Hospit a .3.087694 l .8 2021-10-18 2021-10-18 Travel 1.2.840.1 1.2.580.623 [id number] Methodi 00:00:00 00:00:[address] 3.430.2.7 0.2.7.3.698 Ho spita .3.250194 084.8 l .8 2021-09-22 2021-09-22 Ambulatory nullFlavo [facility] [id number] Memoria 15:00:00 15:00:00 Pre-Reg r Urology 64 l Edilia Nunez [facility] 2021-09-22 2021-09-22 Outpatient EVANIE IE [id number] Memoria 10:00:00 10:00:00 64 vitaly Shawn 2021-09-22 2021-09-22 Outpatient Olga, [facility] [id number] 10:00:00 10:00:00 Debbie Pagan 64 2021-08-15 2021-08-16 Outpatient nullFlavo [facility] [id number] Memoria 19:50:00 04:59:59 r Internal 71 l [facility] Shawn Martinez 2021-08-15 2021-08-15 Outpatient [facility] [id number] 14:50:00 23:59:59 , Radu Talbert 2021-08-15 2021-08-15 Outpatient IE IE [id number] Memoria 14:50:00 14:50:00 71 vitaly Escobar 2021-08-10 2021-08-11 Between nullFlavo [facility] [id number] Memoria 13:02:49 13:02:49 Visit r Internal 50 l Medicine Shawn Martinez 2021-08-10 2021-08-11 Outpatient [facility] [id number] 08:02:49 08:02:49 50 2021-08-08 2021-08-08 Outpatient IE IE [id number] Memoria 14:30:00 14:30:00 72 vitaly Escobar 2021-06-06 2021-06-06 Outpatient IE IE [id number] Memoria 09:45:00 09:45:00 68 vitaly Escobar 2021-05-16 2021-05-17 Outpatient nullFlavo [facility] [id number] Memoria 20:30:00 05:59:59 r Internal 67 l [facility] Shawn Martinez 2021-05-16 2021-05-16 Outpatient [facility] [id number] 14:30:00 23:59:59 , Radu 67 Nitish 2021-05-162021-05-16 Outpatient MHIE MHIE [id number] Memoria 14:30:00 14:30:00 67 vitaly Escobar 2021-05-11 2021-05-12 Between nullFlavo [facility] [id number] Memoria 13:38:24 13:38:24 Visit r Internal 49 l Medicine Shawn Martinez 2021-05-11 2021-05-12 Outpatient MHMG MHMG [id number] 07:38:24 07:38:24 49 2021-05-09 2021-05-09 Ambulatory nullFlavo [facility] [id number] Memoria 17:00:00 17:00:00 Pre-Reg r Internal 68 l Medicine Shawn Martinez 2021-05-09 2021-05-09 Outpatient MHMG MHMG [id number] 11:00:00 11:00:00 68 2021-02-21 2021-02-22 Between nullFlavo [facility] [id number] Memoria 23:26:00 23:26:00 Visit r Internal 48 l Medicine Shawn Martinez 2021-02-21 2021-02-22 Outpatient MHMG MHMG [id number] 17:26:00 17:26:00 48 2021-02-10 2021-02-12 Phone nullFlavo [facility] [id number] Memoria 23:31:40 04:59:59 Message r Internal 16 l Medicine Shawn Martinez 2021-02-10 2021-02-11 Outpatient MHMG MHMG [id number] 18:31:40 23:59:59 16 2021-02-10 2021-02-11 Outpatient nullFlavo [facility] [id number] Memoria 18:45:00 04:59:59 r Internal 69 l Medicine Shawn Martinez 2021-02-10 2021-02-10 Outpatient VISIT, [facility] MH[facility] [id number] 13:45:00 23:59:59 NURSE STRB 69 SLEEP 2021-02-10 2021-02-10 Outpatient MHIE MHIE [id number] Memoria 13:45:00 13:45:00 69 l Shawn 2021-02-07 2021-02-08 Outpatient nullFlavo [facility] [id number] Memoria 20:10:00 04:59:59 r Internal 65 l Medicine Shawn Martinez 2021-02-07 2021-02-07 [id number] 15:10:00 23:59:59 , Radu Talbert 2021-02-07 2021-02-07 Outpatient MHIE MHIE [id number] Memoria 15:10:00 15:10:00 65 vitaly Escobar 2021-02-02 2021-02-03 Between nullFlavo [facility] [id number] Memoria 12:45:37 12:45:37 Visit r Internal 46 l [facility] Shawn Martinez 2021-02-02 2021-02-03 Outpatient MHMG MHMG [id number] 07:45:37 07:45:37 46 2021-01-31 2021-01-31 Ambulatory nullFlavo [facility] [id number] Memoria 19:00:00 19:00:00 Pre-Reg r Internal 66 l [facility] Shawn Melgarberg 2021-01-31 2021-01-31 Outpatient MG MG [id number] 14:00:00 14:00:00 66 2021-01-17 2021-01-17 Outpatient MHIE MHIE [id number] Memoria 12:30:00 12:30:00 66 vitaly Philippi 2020-12-08 2020-12-10 Phone nullFlavo [facility] [id number] Memoria 19:56:06 04:59:59 Message r Internal 15 l [facility] Shawn Melgarberg 2020-12-08 2020-12-09 Outpatient MG MHMG [id number] 14:56:06 23:59:59 15 2020-10-18 2020-10-19 Outpatient nullFlavo [facility] [id number] Memoria 19:30:00 04:59:59 r Internal 62 l [facility] Shawn Melgarberg 2020-10-18 2020-10-18 [id number] 14:30:00 23:59:59 , Radu Talbert 2020-10-18 2020-10-18 Outpatient MHIE MHIE [id number] Memoria 14:30:00 14:30:00 62 vitaly Escobar 2020-10-15 2020-10-16 Between nullFlavo [facility] [id number] Memoria 12:58:00 12:58:00 Visit r Internal 44 l Ivy Martinez 2020-10-15 2020-10-16 Outpatient MG MG [id number] 07:58:00 07:58:00 44 2020-10-14 2020-10-15 Between nullFlavo MG [id number] Memoria 13:05:59 13:05:59 Visit r Internal 43 l Ivy Martinez 2020-10-14 2020-10-15 [facility] [id number] 08:05:59 08:05:59 43 2020-10-13 2020-10-13 Outpatient MHIE IE [id number] Memoria 08:30:00 08:30:00 63 vitaly Shawn 2020-09-21 2020-09-22 Outpatient nullFlavo [facility] [id number] Memoria 15:30:00 04:59:59 r Urology 54 l Edilia Nunez [facility] 2020-09-21 2020-09-21 [facility] Din[facility] [id number] 10:30:00 23:59:59 Pedro 54 Radu 2020-09-21 2020-09-21 Outpatient IE IE [id number] Memoria 10:30:00 10:30:00 54 vitaly Shawn 2020-09-17 2020-09-19 Phone nullFlavo MG [id number] Memoria 13:56:17 04:59:59 Message r Urology 14 l Edilia Nunez [facility] 2020-09-17 2020-09-18 [facility] [id number] 08:56:17 23:59:59 14 2020-09-10 2020-09-12 Phone nullFlavo MG [id number] Memoria 19:23:50 04:59:59 Message r Internal 13 l Ivy Martinez 2020-09-10 2020-09-11 [facility] [id number] 14:23:50 23:59:59 13 2020 2020-07-13 [place] [id number] Memoria 20:00:00 04:59:59 r Internal 60 l Ivy Martinez 2020 2020 [id number] 15:00:00 23:59:59 , Radu 60 Nitish 2020 2020 Outpatient MHIE MHIE [id number] Memoria 15:00:00 15:00:00 60 vitaly Shawn 2020-07-06 2020-07-07 Between nullFlavo [facility] [id number] Memoria 11:26:44 11:26:44 Visit r Internal 40 l Medicine Shawn Martinez 2020-07-06 2020-07-07 Outpatient MHMG MHMG [id number] 06:26:44 06:26:44 40 2020-07-05 2020-07-05 Outpatient MHIE MHIE [id number] Memoria 08:00:00 08:00:00 61 vitaly Escobar 2020-04-12 2020-04-13 Outpatient nullFlavo [facility] [id number] Memoria 21:00:00 05:59:59 r Internal 58 l [facility] Shawn Martinez 2020-04-12 2020-04-12 [facility] [id number] 15:00:00 23:59:59 , Radu 58 Nitish 2020-04-12 2020-04-12 Outpatient MHIE MHIE [id number] Memoria 15:00:00 15:00:00 58 vitaly Escobar 2020-04-06 2020-04-07 Between nullFlavo MG [id number] Memoria 14:36:50 14:36:50 Visit r Internal 39 l [facility] Shawn Martinez 2020-04-06 2020-04-07 Outpatient MHMG MG [id number] 08:36:50 08:36:50 39 2020-04-05 2020-04-05 Outpatient MHIE MHIE [id number] Memoria 10:30:00 10:30:00 59 vitaly Escobar 2020-03-29 2020-03-31 Phone nullFlavo [facility] [id number] Memoria 15:13:37 05:59:59 Message r Internal 12 l [facility] Shawn Martinez 2020-03-29 2020-03-30 Outpatient MHMG MHMG [id number] 09:13:37 23:59:59 12 2020-01-12 2020-01-13 Outpatient nullFlavo [facility] [id number] Memoria 20:00:00 04:59:59 r Internal 55 l Medicine Philippi [place] 2020-01-12 2020-01-12 [facility] [id number] 15:00:00 23:59:59 , Radu 55 Nitish 2020-01-12 2020-01-12 Outpatient MHIE MHIE [id number] Memoria 15:00:00 15:00:00 55 l Philippi 2020-01-06 2020-01-07 Between nullFlavo MG [id number] Memoria 13:31:57 13:31:57 Visit r Internal 37 l Medicine [facility] 2020-01-06 2020-01-07 Outpatient MG MG [id number] 08:31:57 08:31:57 37 2020-01-06 2020-01-06 Outpatient MHIE IE [id number] Memoria 07:00:00 07:00:00 56 vitaly Philippi 2019-12-17 2019-12-19 Phone nullFlavo MG [id number] Memoria 15:44:32 04:59:59 Message r Internal 11 l Medicine Philippi [place] 2019-12-17 2019-12-18 Outpatient MG MG [id number] 10:44:32 23:59:59 11 2019-10-30 2019-10-31 Outpatient nullFlavo MG [id number] Memoria 20:15:00 04:59:59 r Medicine 57 l Shun Philippi 2019-10-30 2019-10-30 [facility] [id number] 15:15:00 23:59:[address] 57 SLEEP 2019-10-30 2019-10-30 Outpatient MHIE IE [id number] Memoria 15:15:00 15:15:00 57 l Philippi 2019-10-13 2019-10-14 [place] [id number] Memoria 19:00:00 04:59:59 r Internal 51 l Medicine [facility] 2019-10-13 2019-10-13 Outpatient Rosalio Panchito MG MG [id number] 14:00:00 23:59:59 51 2019-10-13 2019-10-13 Outpatient MHIE IE [id number] Memoria 14:00:00 14:00:00 51 vitaly Philippi 2019-10-07 2019-10-07 Outpatient MHIE MHIE [id number] Memoria 07:30:00 07:30:00 52 l Philippi 2019-09-22 2019-09-23 [place] [id number] Memoria 16:15:00 04:59:59 r Urology 53 l [place] Mayra [facility] 2019-09-22 2019-09-22 [facility] [id number] 11:15:00 23:59:59 53 2019-09-22 2019-09-22 Outpatient MHIE MHIE [id number] Memoria 11:15:00 11:15:00 53 l Philippi 2019-09-16 2019-09-18 Phone nullFlavo MG [id number] Memoria 14:55:10 04:59:59 Message r Urology 10 l [place] Mayra [facility] 2019-09-16 2019-09-17 Outpatient MG MG [id number] 09:55:10 23:59:59 10 2019-07-30 2019-07-30 [place] [id number] Memoria 16:15:00 16:15:00 Pre-Reg r Urology 44 l [place] Mayra [facility] 2019-07-30 2019-07-30 Outpatient MHIE MHIE [id number] Memoria 11:15:00 11:15:00 44 vitaly Philippi 2019-07-30 2019-07-30 Outpatient Panchito Santamaria [facility] [id number] 11:15:00 11:15:00 44 2019-06-09 2019-06-10 Between nullFlavo MG [id number] Memoria 14:12:28 14:12:28 Visit r Internal 34 l Medicine Philippi [place] 2019-06-09 2019-06-10 Outpatient MG MG [id number] 08:12:28 08:12:28 34 2019-06-09 2019-06-10 [place] [id number] Memoria 20:00:00 05:59:59 r Internal 49 l Medicine [facility] 2019-06-09 2019-06-09 [facility] [id number] 14:00:00 23:59:59 , Radu Talbert 2019-06-09 2019-06-09 Outpatient MHIE MHIE [id number] Memoria 14:00:00 14:00:00 49 vitaly Shawn 2019-06-02 2019-06-02 Outpatient MHIE MHIE [id number] Memoria 07:00:00 07:00:00 50 vitaly Shawn 2019-02-10 2019-02-11 Between nullFlavo [facility] [id number] Memoria 13:58:47 13:58:47 Visit r Internal [facility] [place] 2019-02-10 2019-02-11 Outpatient MHMG MHMG [id number] 07:58:47 07:58:47 32 2019-02-10 2019-02-11 Outpatient nullFlavo [facility] [id number] Memoria 20:00:00 05:59:59 r Internal 47 [facility] [place] 2019-02-10 2019-02-[address] [id number] 14:00:00 23:59:59 , Radu Talbert 2019-02-10 2019-02-10 [place] [id number] Memoria 16:45:00 16:45:00 Pre-Reg r Internal 48 [facility] [place] 2019-02-10 2019-02-10 Outpatient MHIE MHIE [id number] Memoria 14:00:00 14:00:00 47 vitaly Shawn 2019-02-10 2019-02-10 Outpatient MHIE MHIE [id number] Memoria 10:45:00 10:45:00 48 vitaly Shawn 2019-02-10 2019-02-10 Outpatient MG MHMG [id number] 10:45:00 10:45:00 48 2018-10-14 2018-10-15 Outpatient nullFlavo [facility] [id number] Memoria 18:30:00 04:59:59 r Internal [facility] 2018-10-14 2018-10-[address] [id number] 13:30:00 23:59:59 , Radu Talbert 2018-10-14 2018-10-14 Outpatient MHIE MHIE [id number] Memoria 13:30:00 13:30:00 41 vitaly Escobar 2018-10-08 2018-10-09 Between nullFlavo MH[facility] [id number] Memoria 14:25:14 14:25:14 Visit r Internal 30 l Medicine Shawn Melgarberg 2018-10-08 2018-10-09 Outpatient MG MG [id number] 09:25:14 09:25:14 30 2018-10-07 2018-10-07 Outpatient MHIE MHIE [id number] Memoria 08:25:00 08:25:00 42 vitaly Escobar 2018-10-02 2018-10-03 Between nullFlavo [facility] Family [id number] Memoria 12:03:30 12:03:30 Visit r Medicine 28 vitaly Juan Valentine olivier 2018-10-02 2018-10-03 [facility] [id number] 07:03:30 07:03:30 28 2018-10-01 2018-10-02 Outpatient nullFlavo [facility] [id number] Memoria 19:15:00 04:59:59 r Radiology 46 vitaly Valentine olivier 2018-10-01 2018-10-02 Outpatient nullFlavo [facility] Family [id number] Memoria 16:30:00 04:59:59 r Medicine 45 vitaly Valentine olivier 2018-10-01 2018-10-01 Outpatient VISIT, [facility] [id number] 14:15:00 23:59:59 NURSE STRB 46 MORALES 2018-10-01 2018-10-01 Outpatient Jasmeet, [facility] [id number] 11:30:00 23:59:59 Tiffanie 45 2018-10-01 2018-10-01 Outpatient IE IE [id number] Memoria 14:15:00 14:15:00 46 vitaly Shawn 2018-10-01 2018-10-01 Outpatient MHIE IE [id number] Memoria 11:30:00 11:30:00 45 vitaly Escobar 2018-09-26 2018-09-27 Outpatient nullFlavo [facility] Sleep [id number] Memoria 18:15:00 04:59:59 r Medicine 36 vitaly Escobar 2018-09-26 2018-09-26 Outpatient [facility] [id number] 13:15:00 23:59:59 Radu 2018-09-26 2018-09-26 Outpatient MHIE IE [id number] Memoria 13:15:00 13:15:00 36 vitaly Escobar 2018-07-31 2018-08-01 [place] [id number] Memoria 16:15:00 04:59:59 r Urology 43 l [place] Herm[facility] 2018-07-31 2018-07-31 [facility] [id number] 11:15:00 23:59:59 43 2018-07-31 2018-07-31 Outpatient MHIE MHIE [id number] Memoria 11:15:00 11:15:00 43 vitaly Escobar 2018-06-12 2018-06-13 Between nullFlavo MG [id number] Memoria 14:12:26 14:12:26 Visit r Internal 26 [facility] Shawn Martinez 2018-06-12 2018-06-13 [facility] [id number] 08:12:26 08:12:26 2018-06-10 2018-06-11 [place] [id number] Memoria 19:30:00 05:59:59 r Internal 39 [facility] 2018-06-10 2018-06-10 Outpatient [facility] [id number] 13:30:00 23:59:59 , Radu Elia Nitish 2018-06-10 2018-06-10 Outpatient MHIE IE [id number] Memoria 13:30:00 13:30:00 39 vitaly Escobar 2018-06-04 2018-06-05 Between nullFlavo MG [id number] Memoria 14:40:19 14:40:19 [facility] r [facility] 2018-06-04 2018-06-05 [facility] [id number] 08:40:19 08:40:19 2018-06-03 2018-06-03 Outpatient MHIE MHIE [id number] Memoria 08:15:00 08:15:00 40 vitaly Escobar 2018-03-25 2018-03-27 Phone nullFlavo [facility] [id number] Memoria 22:55:00 05:59:59 Message r Internal 09 [facility] Shawn Melgarberg 2018-03-25 2018-03-26 [facility] [id number] 16:55:00 23:59:59 2018-01-29 2018-02-28 [place] [id number] Memoria 15:45:00 15:45:00 Pre-Reg r Internal 38 l [facility] [place] 2018-01-29 2018-02-28 Outpatient MG MHMG [id number] 10:45:00 09:45:00 38 2018-02-04 2018-02-05 [place] [id number] Memoria 18:30:00 04:59:59 r Internal 37 [facility] [place] 2018-02-04 2018-02-04 [facility] [id number] 13:30:00 23:59:59 , Radu Peck Nitish 2018-02-04 2018-02-04 Outpatient MHIE MHIE [id number] Memoria 13:30:00 13:30:00 37 vitaly Shawn 2018-01-29 2018-01-29 Outpatient MHIE MHIE [id number] Memoria 10:45:00 10:45:00 38 vitaly Escobar 2017-12-31 2018-01-02 Phone nullFlavo MG [id number] Memoria 20:51:00 04:59:59 Message r Internal 08 [facility] 2017-12-31 2018-01-01 Outpatient MG MHMG [id number] 15:51:00 23:59:59 08 2017-10-01 2017-10-02 [place] [id number] Memoria 14:30:00 04:59:59 r Internal 34 [facility] [place] 2017-10-01 2017-10-01 [facility] [id number] 09:30:00 23:59:59 , Radu Vegas Nitish 2017-10-01 2017-10-01 Outpatient MHIE MHIE [id number] Memoria 09:30:00 09:30:00 34 vitaly Escobar 2017-09-24 2017-09-24 Outpatient MHIE MHIE [id number] Memoria 08:00:00 08:00:00 35 vitaly Escobar 2017-09-21 2017-09-23 Phone nullFlavo [facility] [id number] Memoria 14:56:00 04:59:59 Message r Internal 07 [facility] 2017-09-21 2017-09-22 Outpatient MHMG MHMG [id number] 09:56:00 23:59:59 07 2017-09-20 2017-09-21 Outpatient nullFlavo MHMG [id number] Memoria 19:00:00 04:59:59 r Internal 25 vitaly Hoffmann 2017-09-20 2017-09-20 Outpatient VISIT, MG MG [id number] 14:00:00 23:59:59 NURSE STWH 25 PA 2017-09-20 2017-09-20 Outpatient MHIE MHIE [id number] Memoria 14:00:00 14:00:00 25 vitaly Escobar 2017-06-04 2017-06-05 [place] [id number] Memoria 21:30:00 05:59:59 r Internal 28 vitaly Martinez 2017-06-04 2017-06-04 [facility] [id number] 15:30:00 23:59:59 , Radu Talbert 2017-06-04 2017-06-04 [facility] [id number] 15:30:00 23:59:59 , Radu Garcia Aquilla 2017-06-04 2017-06-04 Outpatient MHIE MHIE [id number] Memoria 15:30:00 15:30:00 28 vitaly Escobar 2017-05-14 2017-05-15 [place] [id number] Memoria 17:00:00 05:59:59 r Urology 31 l [place] [facility] 2017-05-14 2017-05-14 Outpatient Panchito Santamaria MG [id number] 11:00:00 23:59:59 31 2017-05-14 2017-05-14 Outpatient Panchito Santamaria [facility] [id number] 11:00:00 23:59:59 31 2017-05-14 2017-05-14 Outpatient MHIE MHIE [id number] Memoria 11:00:00 11:00:00 31 vitaly Escobar 2017-03-08 2017-03-10 Phone nullFlavo MH[facility] [id number] Memoria 15:48:00 05:59:59 Message r Urology 05 l [place] [facility] 2017-03-08 2017-03-09 Outpatient MG MHMG [id number] 09:48:00 23:59:59 05 2017-03-06 2017-03-07 Outpatient nullFlavo [facility] [id number] Memoria 16:15:00 05:59:59 r Radiology 33 vitaly Valentine olivier 2017-03-06 2017-03-07 Outpatient nullFlavo [facility] [id number] Memoria 15:30:00 05:59:59 r Internal 32 l Ivy Martinez 2017-03-06 2017-03-06 Outpatient VISIT, MG MG [id number] 10:15:00 23:59:59 NURSE STRB 33 MORALES 2017-03-06 2017-03-[address] [id number] 09:30:00 23:59:59 , Radu Talbert 2017-03-06 2017-03-06 Outpatient MHIE MHIE [id number] Memoria 10:15:00 10:15:00 33 vitaly Escobar 2017-03-06 2017-03-06 Outpatient MHIE MHIE [id number] Memoria 09:30:00 09:30:00 32 vitaly Escobar 2017-02-15 2017-02-15 Outpatient MHIE MHIE [id number] Memoria 10:45:00 10:45:00 30 vitaly Escobar 2017-01-29 2017-01-29 Outpatient MHIE MHIE [id number] Memoria 15:30:00 15:30:00 26 vitaly Escobar 2016-09-25 2016-09-25 Outpatient MHIE MHIE [id number] Memoria 15:30:00 15:30:00 15 vitaly Escobar 2016-09-21 2016-09-21 Outpatient MHIE MHIE [id number] Memoria 13:15:00 13:15:00 06 vitaly Escobar 2016-09-07 2016-09-07 Outpatient MHIE MHIE [id number] Memoria 10:00:00 10:00:00 23 vitaly Escobar 2016-08-25 2016-08-25 Outpatient MHIE MHIE [id number] Memoria 16:45:00 16:45:00 24 vitaly Escobar 2016-08-10 2016-08-10 Outpatient MHIE MHIE [id number] Memoria 11:00:00 11:00:00 22 vitaly Escobar 2016-08-02 2016-08-02 Day nullFlavo [facility] [id number] Memoria 15:02:30 21:50:00 Surgery r Philippi 11 l [place] Mayra nn 2016-08-02 2016-08-02 Outpatient Oliverio, MHSL MHSL [id number] 10:02:30 16:50:00 [place] F 11 2016-07-24 2016-07-24 Outpatient MHIE MHIE [id number] Memoria 16:45:00 16:45:00 21 vitaly Escobar 2016-07-19 2016-07-20 Outpt Diag nullFlavo [facility] [id number] Memoria 17:48:00 04:59:00 Services r Outpatient 02 l Imaging Shawn [place] 2016-07-19 2016-07-19 Outpatient Oliverio, MH29 [id number] 12:48:00 23:59:00 [place] Villalpando 02 2016-07-13 2016-07-13 Outpatient MHIE MHIE [id number] Memoria 10:30:00 10:30:00 17 vitaly Escobar 2016-07-10 2016-07-10 Outpatient MHIE MHIE [id number] Memoria 16:00:00 16:00:00 18 vitaly Escobar 2016-07-10 2016-07-10 Outpatient MHIE MHIE [id number] Memoria 16:00:00 16:00:00 20 vitaly Escobar 2016-07-10 2016-07-10 Outpatient MHIE MHIE [id number] Memoria 16:00:00 16:00:00 19 vitaly Escobar 2016-05-29 2016-05-29 Outpatient MHIE MHIE [id number] Memoria 15:30:00 15:30:00 10 vitaly Escobar 2016-04-20 2016-04-20 Outpatient MHIE MHIE [id number] Memoria 15:30:00 15:30:00 14 vitaly Escobar 2016-02-17 2016-02-17 Outpatient MHIE MHIE [id number] Memoria 13:45:00 13:45:00 12 vitaly Escobar 2016-01-24 2016-01-24 Outpatient MHIE MHIE [id number] Memoria 16:30:00 16:30:00 09 vitaly Escobar 2016-01-24 2016-01-24 Outpatient MHIE [facility] [id number] [facility] 15:30:00 15:30:00 07 vitaly Escobar 2015-09-27 2015-09-27 [id number] 15:30:00 15:30:00 04 vitaly Shawn 2015-09-23 2015-09-23 Outpatient [facility] [place] [id number] [facility] 13:15:00 13:15:00 00 vitaly Shawn 2015-05-31 2015-05-31 Outpatient [facility] [id number] [facility] 15:30:00 15:30:00 02 vitaly Escobar 2015-02-01 2015-02-01 Outpatient [facility] [id number] [facility] 15:30:00 15:30:00 01 vitaly Escobar 2012-05-13 2012-05-13 [facility] [id number] 12:16:00 12:16:00 00 vitaly Escobar Results Test Description Test Time Test Comments Results Result Comments Source POC BLADDER SCAN/PVR 2022-04-18 15:45:07 Test Item Value Reference Range Interpretation Comme nts Volume (test code = 5703871) 0 [facility] urinalysis [id number] 15:39:01 Test Item Value Reference Range Interpretation Comments Color urine, POC (test Yellow code = 6301589) Clarity urine, POC (test Clear code = 5161856) Glucose urine, POC (test Negative Negative code = 0390839) Bilirubin urine, POC Negative Negative (test code = 0912347) Ketones urine, POC (test Negative Negative code = 8577174) Specific gravity urine, 1.020 1.005-1.030 POC (test code = 2645746) Blood urine, POC (test Negative Negative code = 9402206) pH urine, POC (test code 6.0 See_Comment [A utomated message] = 1375241) The system [employer] generated this result transmitted ref erence range: 5.0, 5.5 , 6.0, 6.5, 7.0, 7.5, 8.0, 8.5. The refere nce range was not u sed to interpret this result as normal/abnor mal. Protein urine, POC (test 3+ Negative A code = 2304472) Urobilinogen urine, POC <2.0 <=2.0 (test code = 7827007) Nitrite urine, POC (test Negative Negative code = 9383542) Leukocyte esterase Negative Negative urine, POC (test code = 5023816) Lab Interpretation (test Abnormal code = 17282-2) [id number] 09:26:00 Test Item Value Reference Range Interpretation Comments PSA, total 0.49 ng/mL See_Comment NOTE: NCCN (test code = Guidelines(2.20 21)recommend 4197) repeat testing every 2-4 years if PSA is <1 ng /mL and every 1-2 years if PS A is 1-3 ng/mL in men aged 45 to 75 years. A PSA value of 1. 00 ng/mL selects for the upper r betsey of PSA values. Men who have a PSA above the media n for their age group are at a higher risk for prostate cancer and for the aggressive form of the disease. The higher abov e the median, the greater the risk. NOTE: The PSA assay shoul d not be the only test used for diagnostic purposes. Addit ional evaluation using TRAVIS, ultr asound, TUR or similar procedu res may be used for this purpos e. Predictions of disease recu rrence should not be based so beth upon values obtained from s erial PSA values obtained on the patient.NOTE: Values obtained with different assay methods o r kits cannot be used interchang eably.NOTE: Results cannot be interpreted as absolute emily dence of the presence or abs ence of malignant disea se. ASSAY INFORMATION: Me thod Electrochemilum inescence Immunoassay ([employer]) NO TE: This assay has no biotin i nterference in serum concentra tions up to 1200 ng/mL. [employer]aco kinetic studies have shown that serum concentrations of biotin can reach up to 355 ng/mL within the first hour after biotin ingestion for s ubjects consuming suppl ements of 20 mg biotin per day and up to 1160 ng/mL for subje cts after a single dose of 300 mg biotin. [Automated mess age] The system which generated this result transmitted ref erence range: <=4.00. The ref erence range was not used to int erpret this result as jose l/abnormal. [facility] urinalysis [id number] 14:54:00 Test Item Value Reference Range Interpretation Comments Color urine, POC (test Yellow code = 2733245) Clarity urine, POC Clear (test code = 9032294) Glucose urine, POC Negative Negative (test code = 2906970) Bilirubin urine, POC Negative Negative (test code = 4879849) Ketones urine, POC Negative Negative (test code = 7418736) Specific gravity urine, 1.005-1.030 POC (test code = 8072207) Blood urine, POC (test Negative Negative code = 6516961) pH urine, POC (test See_Comment [Automa osbaldo message] code = 7653379) The system w [employer] generated this result transmitted ref erence range: 5.0, 5.5 , 6.0, 6.5, 7.0, 7.5, 8.0, 8.5. The refere nce range was not u sed to interpret this result as normal/abnor mal. Protein urine, POC Negative Negative (test code = 5160586) Urobilinogen urine, POC <2.0 See_Comment [Au tomated message] (test code = 5229180) The sy stem which generated this result transmitted ref erence range: <=2.0. T he reference range was not used to int erpret this result as normal/abnormal . Nitrite urine, POC Negative Negative (test code = 6206079) Leukocyte esterase Negative Negative urine, POC (test code = 8541161) [facility] BLADDER SCAN/[id number] 14:53:00 Test Item Value Reference Range Interpretation Comments Urine volume (test code = 6354) [facility]2021-06-15 15:22:00 Test Item Value Reference Range Interpretation Comments POC UA Color (test Yellow *NA*(09/21/20 code = POC UA Color) 10:22 AM) [facility]2021-06-15 15:22:00 Test Item Value Reference Range Interpretation Comments POC UA Turbidity (test Clear *NA*(09/21/20 code = POC UA Turbidity) 10:22 AM) [facility]2021-06-15 15:22:00 Test Item Value Reference Range Interpretation Comments POC UA SG (test code = POC UA SG) 1.020 1 [facility]2021-06-15 15:22:00 Test Item Value Reference Range Interpretation Comments POC UA pH (test code = POC UA pH) 6.0 1 5.0-8.0 [facility] [id number] 15:22:00 Test Item Value Reference Range Interpretation Comments POC UA Prot (test code = POC UA Trace mg/dL Prot) [facility] [id number] 15:22:00 Test Item Value Reference Range Interpretation Comments POC UA Glu (test code = POC UA Negative mg/dL Glu) [facility] [id number] 15:22:00 Test Item Value Reference Range Interpretation Comments POC UA Ket (test code = POC UA Negative mg/dL Ket) [facility] AND [id number] 15:22:00 Test Item Value Reference Range Interpretation Comments POC UA Bili (test Negative *NA*(09/21/20 code = POC UA Bili) 10:22 AM) [facility] AND [id number] 15:22:00 Test Item Value Reference Range Interpretation Comments POC UA Bld (test code Negative *NA*(09/21/20 = POC UA Bld) 10:22 AM) [facility] AND [id number] 15:22:00 Test Item Value Reference Range Interpretation Comments POC UA Uro (test code = POC UA Uro) 0.2 0.1-1.0 [facility] AND [id number] 15:22:00 Test Item Value Reference Range Interpretation Comments POC UA Nit (test code Negative *NA*(09/21/20 = POC UA Nit) 10:22 AM) [facility] AND [id number] 15:22:00 Test Item Value Reference Range Interpretation Comments POC UA LeukEst (test Negative *NA*(09/21/20 code = POC UA LeukEst) 10:22 AM) [facility] [id number] 21:10:00 Test Item Value Reference Range Interpretation Comments PSA (test code = PSA) 0.4 [facility] [employer] [id number] 18:40:00 Test Item Value Reference Range Interpretation Comments eGFR (test code = eGFR) 68 [facility] [id number] 18:40:00 Test Item Value Reference Range Interpretation Comments Calcium Lvl (test code = Calcium Lvl) 8.7 8.5-10.5 [facility] [id number] 18:40:00 Test Item Value Reference Range Interpretation Comments Chloride Lvl (test code = Chloride Lvl) 106 95-109 [facility]2017-04-21 18:40:00 Test Item Value Reference Range Interpretation Comments CO2 (test code = CO2) 29 24-32 [facility]2017-04-21 18:40:00 Test Item Value Reference Range Interpretation Comments Sodium Lvl (test code = Sodium Lvl) 142 135-145 [facility]2017-04-21 18:40:00 Test Item Value Reference Range Interpretation Comments Potassium Lvl (test code = Potassium 4.3 3.5-5.1 Lvl) [facility]2017-04-21 18:40:00 Test Item Value Reference Range Interpretation Comments Creatinine Lvl (test code = Creatinine 1.15 0.50-1.40 Lvl) [facility]2017-04-21 18:40:00 Test Item Value Reference Range Interpretation Comments BUN (test code = BUN) 14 7-22 [facility]2017-04-21 18:40:00 Test Item Value Reference Range Interpretation Comments Glucose Lvl (test code = Glucose Lvl) 193 70-99 [facility]2017-04-21 18:40:00 Test Item Value Reference Range Interpretation Comments AGAP (test code = AGAP) 11.3 10.0-20.0 [id number] 18:40:00 Test Item Value Reference Range Interpretation Comments Macrocyte (test code = 1+ *ABN*(07/28/16 Macrocyte) 1:40 PM) [facility] [id number] 18:40:00 Test Item Value Reference Range Interpretation Comments Anisocyte (test code = 1+ *ABN*(07/28/16 Anisocyte) 1:40 PM) [facility] H[id number] 18:40:00 Test Item Value Reference Range Interpretation Comments Basophils # (test code 0.0 See_Comment [Aut omated message] The = Basophils #) system which generated this result tra nsmitted reference range : <=0.2. The reference r betsey was not used to int erpret this result as normal/abnormal . [facility] Hospit[id number] 18:40:00 Test Item Value Reference Range Interpretation Comments Eosinophils # (test code 0.7 See_Comment [A utomated message] The = Eosinophils #) system whic h generated this result tra nsmitted reference range : <=0.5. The reference r betsey was not used to int erpret this result as normal/abnormal . [facility] H[id number] 18:40:00 Test Item Value Reference Range Interpretation Comments Monocytes (test code = Monocytes) 9.1 2.0-12.0 [facility] H[id number] 18:40:00 Test Item Value Reference Range Interpretation Comments Basophils (test code = 0.2 See_Comment [Aut omated message] The Basophils) system which ge nerated this result tra nsmitted reference range : <=1.0. The reference r bestey was not used to int erpret this result as normal/abnormal . [facility] H[id number] 18:40:00 Test Item Value Reference Range Interpretation Comments Eosinophils (test code = 6.3 See_Comment [A utomated message] The Eosinophils) system which ge nerated this result tra nsmitted reference range : <=4.0. The reference r betsey was not used to int erpret this result as normal/abnormal . [facility] H[id number] 18:40:00 Test Item Value Reference Range Interpretation Comments RBC Morph (test code = Normal (07/28/16 1:40 RBC Morph) PM) [facility] H[id number] 18:40:00 Test Item Value Reference Range Interpretation Comments Segs-Bands # (test code = Segs-Bands #) 4.6 1.5-8.1 [facility] H[id number] 18:40:00 Test Item Value Reference Range Interpretation Comments Monocytes # (test code 1.0 See_Comment [Aut omated message] The = Monocytes #) system which generated this result tra nsmitted reference range : <=0.8. The reference r betsey was not used to int erpret this result as normal/abnormal . [facility] H[id number] 18:40:00 Test Item Value Reference Range Interpretation Comments Lymphocytes # (test code = Lymphocytes 4.4 1.0-5.5 #) [facility] H[id number] 18:40:00 Test Item Value Reference Range Interpretation Comments Plt Morph (test code = Normal (07/28/16 1:40 Plt Morph) PM) [facility] Hos[id number] 18:40:00 Test Item Value Reference Range Interpretation Comments Segs (test code = Segs) 42.9 45.0-75.0 [facility] H[id number] 18:40:00 Test Item Value Reference Range Interpretation Comments Lymphocytes (test code = Lymphocytes) 41.5 20.0-40.0 [facility] H[id number] 18:40:00 Test Item Value Reference Range Interpretation Comments MPV (test code = MPV) 10.7 7.4-10.4 [facility] H[id number] 18:40:00 Test Item Value Reference Range Interpretation Comments RBC (test code = RBC) 4.52 4.70-6.10 [facility] HospitalSijoadzUKZGGMLQAF6594-27-28 18:40:00 Test Item Value Reference Range Interpretation Comments MCHC (test code = MCHC) 33.8 32.0-36.0 [facility] H[id number] 18:40:00 Test Item Value Reference Range Interpretation Comments Platelet (test code = Platelet) 262 133-450 [facility] H[id number] 18:40:00 Test Item Value Reference Range Interpretation Comments RDW (test code = RDW) 14.4 11.5-14.5 [facility] H[id number] 18:40:00 Test Item Value Reference Range Interpretation Comments Hgb (test code = Hgb) 14.9 14.0-18.0 [facility] H[id number] 18:40:00 Test Item Value Reference Range Interpretation Comments Hct (test code = Hct) 44.1 42.0-54.0 [facility] Ho[id number] 18:40:00 Test Item Value Reference Range Interpretation Comments MCV (test code = MCV) 97.6 80.0-94.0 [facility] Hos[id number] 18:40:00 Test Item Value Reference Range Interpretation Comments MCH (test code = MCH) 33.0 pg 27.0-31.0 [facility] H[id number] 18:40:00 Test Item Value Reference Range Interpretation Comments WBC (test code = WBC) 10.6 3.7-10.4 [facility] Notes Date/Time Note Provider Source 2018-10-01 16:17:00-00:00 Patient Name: TAYLOR SMITH [facility] : 1955; Age: 63 years y/o Male MR: [id number] Study: 3 view examination of the left wrist date d 10/01/2018. Clinical Indication: - pain/fell on left wrist y esterday/swollen; Comparison: None Mild degenerative changes ar e seen about the left 1st carpal metacarpal joint. Osteopenia. No fracture or dislocation. If there is snuffbox tenderness, cannot exclude an occult scaphoid fracture. SL: [id number] 2017-03-06 10:21:42-00:00 [facility] H[facility]ORY: Pain and swelling. COMPARISON: None available. FINDINGS: No fracture or dislocation e vident. Joint spaces appear within normal limits. No periosteal reaction. Chronic/degenerative changes noted. Prominent superior and inferior spurring of the posterior calcaneus present. Soft tissue swelling present. IMPRESSION: 1. No acute osseous abnormality. SL: [id number] 2016-07-19 14:20:00-00:00 EXAMINATION: MRI of the right knee wit hout contrast. [facility] [place] HISTORY: right knee internal derangement- M23.91 ; AGE: 61 years GENDER: Male COMPARISON: Right knee radiographs 07/10/2016 TECHNIQUE: Multiplanar, mult isequence magnetic resonance imaging of the right knee is performed with an extremity coil without contrast. FINDINGS: Menisci: Medial: There is a radial te ar of the posterior horn of the medial meniscus (image 14, series 301 and image 10 through 12, series 801). There is also horizontal undersurface tearing of the posterior bod y of the medial meniscus wit h a longitudinal femoral articular surface tear of the peripheral body (image 27, series 401 and image 8 and 9, series 801). Lateral: The anterior horn, body, and posterior horn are intact. Ligaments: The anterior cruc iate ligament and posterior cruciate ligament are intact. There is mild increased T2 signal along the medial collateral ligament which is favored to be reactive related to un derlying medial meniscal pat hology. The lateral collateral ligament complexes intact and unremarkable. Extensor mechanism: The extensor mechanism is in tact. Muscles: There is normal sig nal intensity and muscle bulk of the musculature at the knee. Cartilage: There is moderate reactive marrow change in the lateral patellar facet and patellar apex. Mild early osteophyte formation seen in the patellofemoral compartment. The patellofemoral articular cartilage demonstrates grade 2 chondral thinning in the lateral patellar facet with superimposed moderate chondral surface fraying. The medial tibiofemoral articular cartilage demonstrates a 10 x 15 mm partial-thickness, moderate grade, focus of chondral loss in the lateral aspect of the medial femoral condyle.. The lateral tibiofemoral articular cartilage is intact.. Bone: There are no acute fra ctures. There are no suspicious bone marrow replacing lesions. Soft tissues: There is a mod erate knee joint effusion. There is no Bolaños's cyst. Multiple venous varicosities are seen in the posterior soft tissues of the knee. IMPRESSION: 1. Complex multidirectional tearing of the posterior horn and body of the medial meniscus as described above. 2. Moderate grade, approxima tely 50% thickness, 10 x 15 mm focus of chondral loss in the lateral aspect of the medial femoral condyle. 3. 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 There is moderate underlying reactive marrow change in the lateral patellar facet. 4. Moderate knee joint effusion. 5. Prominent venous varicosi ties in the posterior soft tissues of the left knee. 2016-07-10 16:03:04-00:00 Exam: Right knee x-ray, 2 views [facility] Reason for Exam: PAIN Comparison Exam: none Discussion: No fractures or dislocations are seen of the right knee. The joint spaces are preserved. No intraosseous lesions. No radiopaque foreign bodies. Impression: 1. No acute bony abnormalities seen within the r ight knee. 2016-01-24 16:25:45-00:00 EXAMINATION: Right foot frontal and la teral. [facility] HISTORY: Right foot pain; right foot soft tissue swelling; right heel spur FINDINGS: 2 view nonweightbe aring examination of the right foot is performed without comparison. There is soft tissue swellin g along the dorsum of the foot. There is no underlying fracture or dislocation. There is an os peroneum. The joint spaces are normal. There is no ankle effusion. There is a p lantar calcaneal spur. There is heterotopic ossification at the Achilles insertion. There are no radiopaque foreign bodies identified. IMPRESSION: 1. Soft tissue swelling delmi g the dorsum of the right foot without underlying fracture or dislocation. 2. Right plantar calcaneal spur.
[2022-10-24] MEDS ORDERED: FENTANYL CITR 100 MCG/2 ML ONE (09:18)
[2022-10-24] MEDS ORDERED: ONDANSETRON 4 MG/2 ML VIAL ONE (09:18)
--- NOTE | 2022-10-24 09:46 | RAD REPORT ---
EXAM DESCRIPTION: RAD - Hip Left 2 View - 10/24/2022 9:24 am CLINICAL HISTORY: Left hip pain status post injury FINDINGS: Intertrochanteric/greater trochanteric fracture left femur. Fracture fragments by 1 centimeter. No dislocation
[2022-10-24] MEDS ORDERED: HYDROMORPHONE HCL 0.5 MG/0.5 ML INJ ONE ×2 (10:28→12:15)
--- NOTE | 2022-10-24 10:30 | EDPHYS ---
Physician Documentation [facility] Name: Chance Smith Age: 67 yrs Sex: Male : 1955 Arrival Date: 10/24/2022 Time: 08:41 Bed 7 Private MD: ED Physician Donny Olivier HPI: 10/24 08:53 This 67 yrs old Male presents to ER via EMS with complaints of Fall Injury. sb4 08:53 Details of fall: The patient fell from an upright position, while walking. Onset: The sb4 symptoms/episode began/occurred just prior to arrival. Associated injuries: The patient sustained left hip, painful injury. 67 year old male with PMH of hypertension, hypothyroidism, hypercholesterolemia presents s/p fall. He states that he was taking his trash out this morning, tripped on his crocs, and fell directly onto his left hip. He was on the ground for about 15 minutes and could not get up. He reports pain to the left hip, no obvious deformity. States the pain is minimal when he is not moving it. Neurovascularly intact. 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 - Social history:: Smoking status: Patient denies any tobacco usage or history of. - Immunization history: Last tetanus immunization: - up to date. ROS: 08:53 Constitutional: Negative for fever, chills, and weight loss, Eyes: Negative for injury, sb4 pain, redness, and discharge, ENT: Negative for injury, pain, and discharge, Cardiovascular: Negative for chest pain, palpitations, and edema, Respiratory: Negative for shortness of breath, cough, wheezing, and pleuritic chest pain, Abdomen/GI: Negative for abdominal pain, nausea, vomiting, diarrhea, and constipation, Skin: Negative for injury, rash, and discoloration, Neuro: Negative for headache, weakness, numbness, tingling, and seizure. 08:53 MS/extremity: Positive for injury or acute deformity, pain, of the left hip. 08:53 All other systems are negative. Exam: 08:53 Constitutional: This is a well developed, well nourished patient who is awake, alert, sb4 and in no acute distress. Head/Face: Normocephalic, atraumatic. Eyes: Extra-ocular motions intact. Periorbital areas with no swelling, redness, or edema. Cardiovascular: Regular rate and rhythm with a normal S1 and S2. Respiratory: Lungs have equal breath sounds bilaterally, clear to auscultation and percussion. No rales, rhonchi or wheezes noted. No increased work of breathing, no retractions or nasal flaring. Abdomen/GI: Soft, non-tender, no distension. Skin: Warm, dry with normal turgor. Normal color with no rashes, no lesions, and no evidence of cellulitis. Neuro: Awake and alert, GCS 15, oriented to person, place, time, and situation. Cranial nerves II-XII grossly intact. Motor strength 5/5 in all extremities. Sensory grossly intact. Cerebellar exam normal. Normal gait. 08:53 Musculoskeletal/extremity: Extremities: ROM: limited active range of motion due to pain, limited passive range of motion due to pain, Circulation is intact in all extremities. Sensation intact. Vital Signs: 08:41 BP 109 / 82; Pulse 70; Resp 18 S; Temp 98(TE); Pulse Ox 100% ; Weight 108.86 kg (R); aa5 Height 5 ft. 11 in. (R); 09:10 BP 114 / 77; Pulse 75; Resp 18 S; Pulse Ox 100% on R/A; Pain 6/10; aa5 09:40 BP 115 / 71; Pulse 65; Resp 18; Pulse Ox 100% on R/A; eh3 10:30 BP 119 / 79; Pulse 67; Resp 18; Pulse Ox 100% on R/A; eh3 11:30 BP 115 / 69; Pulse 76; Resp 18; Pulse Ox 100% on R/A; eh3 12:30 BP 106 / 70; Pulse 76; Resp 18; Pulse Ox 100% on R/A; eh3 08:41 Body Mass Index 33.47 (108.86 kg, 180.34 cm) aa5 09:10 Pain Scale: Adult aa5 [place] Coma Score: 08:42 Eye Response: spontaneous(4). Motor Response: obeys commands(6). Verbal Response: aa5 oriented(5). Total: 15. Trauma Score (Adult): 08:42 Eye Response: spontaneous(1); Verbal Response: oriented(1); Motor Response: obeys aa5 commands(2); Systolic BP: > 89 mm Hg(4); Respiratory Rate: 10 to 29 per min(4); [place] Score: 15; Trauma Score: 12 MDM: 08:44 Patient medically screened. sb4 08:53 Differential diagnosis: fracture, strain, dislocation. sb4 10:28 Data reviewed: vital signs, nurses notes, radiologic studies, plain films, I have sb4 discussed the patient's presentation/case with the attending Emergency Department Physician; and as a result, I will admit patient. Consideration of Admission/Observation Patient was admitted/placed on observation. Management of patient was discussed with the following: Roll Up Operator: Azeem Yin. Management of patient was discussed with the following: Hospitalist: Shannan. Historians other than the Patient: Spouse/Significant Other: spouse. Counseling: I had a detailed discussion with the patient and/or guardian regarding: the historical points, exam findings, and any diagnostic results supporting the discharge/admit diagnosis, radiology results, the need for further work-up and treatment in the hospital. 10/24 10:03 Order name: Basic Metabolic Panel; Complete Time: 10:59 4 10/24 10:03 Order name: CBC with Diff; Complete Time: 10:52 sb4 10/24 11:19 Order name: Hemoglobin A1c; Complete Time: 14:05 EDMS 10/24 11:19 Order name: Lipid Profile; Complete Time: 14:05 EDMS 10/24 11:28 Order name: Magnesium; Complete Time: 14:05 EDMS 10/24 11:28 Order name: Phosphorus; Complete Time: 14:05 EDMS 10/24 11:28 Order name: Troponin High Sensitivity; Complete Time: 14:05 EDMS 10/24 11:28 Order name: Urinalysis w/ reflexes EDMS 10/24 11:28 Order name: Basic Metabolic Panel EDMS 10/24 11:28 Order name: Basic Metabolic Panel EDMS 10/24 11:28 Order name: CBC with Automated Diff EDMS 10/24 11:28 Order name: CBC with Automated Diff EDMS 10/24 08:45 Order name: Hip Left 2 View XRAY; Complete Time: 09:58 sb4 10/24 10:03 Order name: XRAY Chest (1 view); Complete Time: 10:59 sb4 10/24 10:03 Order name: EKG; Complete Time: 10:04 sb4 10/24 11:24 Order name: Heart Healthy EDMS 10/24 10:03 Order name: EKG - Nurse/Tech; Complete Time: 10:35 sb4 10/24 10:03 Order name: IV Saline Lock; Complete Time: 10:20 sb4 10/24 10:03 Order name: O2 Per Protocol; Complete Time: 10:20 sb4 10/24 10:03 Order name: O2 Sat Monitoring; Complete Time: 10:20 sb4 EC:34 Rate is 44 beats/min. Rhythm is regular, Normal Sinus Rhythm. QRS [place] is Normal. OR sb4 interval is normal at 206 msec. QRS interval is normal at 90 msec. QT interval is normal at 394 msec. No Q waves. T waves are Normal. Clinical impression: Normal ECG. Interpreted by me. Reviewed by me. Administered Medications: 09:10 Drug: Ondansetron IVP 4 mg Route: IVP; Site: right antecubital; aa5 11:13 Follow up: Response: No adverse reaction eh3 09:12 Drug: fentaNYL (PF) IVP 50 mcg Route: IVP; Site: right antecubital; aa5 11:13 Follow up: Response: No adverse reaction eh3 10:35 Drug: HYDROmorphone IVP 0.5 mg Route: IVP; Site: right antecubital; eh3 11:13 Follow up: Response: No adverse reaction eh3 12:09 Drug: HYDROmorphone IVP 0.5 mg Route: IVP; Site: right antecubital; eh3 12:58 Follow up: Response: No adverse reaction eh3 Disposition: 13:22 Co-signature as Attending Physician, Donny Olivier MD I agree with the assessment and kdr plan of care. Disposition Summary: 10/24/22 10:30 Hospitalization Ordered Hospitalization Status: Inpatient Admission sb4 Provider: Radu Vallejo sb4 Location: Telemetry/MedSur (Inpatient) sb4 Condition: Fair sb4 Problem: new sb4 Symptoms: are unchanged sb4 Bed/Room Type: Standard sb4 Room Assignment: 201(10/24/22 12:12) dw Diagnosis - Intertrochanteric fracture of femur sb4 Forms: - Medication Reconciliation Form sb4 - SBAR form sb4 Signatures: Dispatcher [employer] Purvi Berry RN RN dw Donny Olivier MD MD [facility] Evelyne Huggins RN RN 5 Ginny Flores RN RN 3 Amanda Sim PA-C PABenny sb4 Corrections: (The following items were deleted from the chart) 12:12 10:30 sb4 dw
--- NOTE | 2022-10-24 10:30 | ER ---
Nurse's Notes [facility] Name: Chance Smith Age: 67 yrs Sex: Male : 1955 Arrival Date: 10/24/2022 Time: 08:41 Bed 7 Private MD: Diagnosis: Intertrochanteric fracture of femur Presentation: 10/24 08:41 Chief complaint: EMS states: slipped and fell onto left hip taking garbage out today. aa5 Denies head injury, denies LOC. 08:41 Coronavirus screen: At this time, the client does not indicate any symptoms associated aa5 with coronavirus-19. Ebola Screen: Patient denies travel to an Ebola-affected area in the 21 days before illness onset. Initial Sepsis Screen: Does the patient meet any 2 criteria? No. Patient's initial sepsis screen is negative. Does the patient have a suspected source of infection? No. Patient's initial sepsis screen is negative. Risk Assessment: Do you want to hurt yourself or someone else? Patient reports no desire to harm self or others. Onset of symptoms was October 24, 2022. 08:41 Acuity: SOUMYA 3 aa5 08:41 Method Of Arrival: [facility] aa5 08:41 Care prior to arrival: IV initiated. 20 GA, in the right antecubital area. aa5 08:41 Mechanism of Injury: Fall from standing position. Trauma event details: Injury occurred aa5 in the [facility], Injury occurred: at home. Injury occurred: October 24, 2022. 12:14 Care prior to arrival: None. 3 Trauma Activation: Alert Physician: ED Physician; Name: ; Notified At: ; Arrived At: Physician: General Surgeon; Name: ; Notified At: ; Arrived At: Physician: Radiology; Name: ; Notified At: ; Arrived At: Physician: Respiratory; Name: ; Notified At: ; Arrived At: Physician: Lab; Name: ; Notified At: ; Arrived At: Historical: - Allergies: 08:43 Ibuprofen (itching ); aa5 - Home Meds: 12:10 esomeprazole magnesium 40 mg oral capsule,delayed release (e.c.) [Active]; 3 levothyroxine 112 mcg tablet daily [Active]; atorvastatin 20 mg oral tablet every evening [Active]; carvedilol 12.5 mg oral tablet 2 times per day [Active]; metformin 500 mg Oral Tablet, Extended Release 24 hr [Active]; tadalafil 5 mg oral tablet [Active]; cephalexin 500 mg oral capsule 4 times per day [Active]; - PMHx: 08:43 Hypertensive disorder; borderline diabetes; Hypothyroidism; Hypercholesterolemia; aa5 - PSHx: 08:43 spleenectomy; vito knee sx; rotator cuff; Vasectomy; aa5 - Immunization history:: Adult Immunizations unknown. - Social history:: Smoking status: Patient denies any tobacco usage or history of. - Immunization history: Last tetanus immunization: - up to date. Screenin:48 [facility] ED Fall Risk Assessment (Adult) History of falling in the last 3 months, aa5 including since admission Yes- single mechanical fall (1 pt) Confusion or Disorientation No (0 pts) Intoxicated or Sedated No (0 pts) Impaired Gait No (0 pts) Mobility Assist Device Used No (0 pt) Altered Elimination No (0 pt) Score/Fall Risk Level 0 - 2 = Low Risk Oriented to surroundings, Maintained a safe environment, Educated pt \\T\\ family on fall prevention, incl call for assistance when getting out of bed. Abuse screen: Denies threats or abuse. Nutritional screening: No deficits noted. Tuberculosis screening: No symptoms or risk factors identified. Primary Survey: 08:42 NO uncontrolled hemorrhage observed. A: The client is awake and alert. The airway is aa5 patent. Breathing/Chest: Spontaneous respiratory effort, equal unlabored respirations, breath sounds clear bilaterally, regular pattern, symmetrical chest rise and fall. Circulation: No external hemorrhage present. Regular and strong central pulse, skin warm/dry/normal color. Disability Client is alert. Exposure/Environment: A warming method has been applied: A warm blanket has been provided to the patient. 09:00 Reassessment Alertness and Airway: Awake and alert. The airway is patent. Breathing: aa5 Spontaneous respiratory effort, equal unlabored respirations, breath sounds clear bilaterally, regular pattern with symmetrical chest rise and fall. Circulation: No external hemorrhage noted. Regular and strong central pulse, skin warm/dry/normal color. Disability: Alert. Secondary Survey: 08:42 HEENT: No deficits noted. Gastrointestinal: No deficits noted. : No signs and/or aa5 symptoms were reported regarding the genitourinary system. Musculoskeletal: Reports pain in left hip. Assessment: 08:42 General: Appears comfortable, Behavior is calm, cooperative. Pain: Complains of pain in aa5 left hip Pain currently is 3 out of 10 on a pain scale. Quality of pain is described as crampy, Is continuous, Noted to be resistant to movement. Neuro: Level of Consciousness is awake, alert, obeys commands, Oriented to person, place, time, situation. Cardiovascular: Heart tones S1 S2 present Rhythm is regular. Respiratory: Airway is patent Respiratory effort is even, unlabored, Respiratory pattern is regular, symmetrical. GI: No signs and/or symptoms were reported involving the gastrointestinal system. : No signs and/or symptoms were reported regarding the genitourinary system. EENT: No signs and/or symptoms were reported regarding the EENT system. Derm: Skin is pink, warm \\T\\ dry. Musculoskeletal: Reports pain in left hip left leg is externally rotated. 08:50 Reassessment: Patient is alert, oriented x 3, equal unlabored respirations, skin aa5 warm/dry/pink. Pt states "I am okay just as long as I don't move". Pain medication offered by provider, pt declined at this time. . 09:07 Reassessment: Pt now requesting pain medication, provider notified. . aa5 09:10 Reassessment: Patient is alert, oriented x 3, equal unlabored respirations, skin aa5 warm/dry/pink. 09:12 Reassessment: X-RAY AT BEDSIDE . aa5 09:40 Reassessment: Patient appears in no apparent distress at this time. Patient and/or eh3 family updated on plan of care and expected duration. Pain level reassessed. Patient is alert, oriented x 3, equal unlabored respirations, skin warm/dry/pink. 10:30 Reassessment: Patient appears in no apparent distress at this time. Patient and/or eh3 family updated on plan of care and expected duration. Pain level reassessed. Patient is alert, oriented x 3, equal unlabored respirations, skin warm/dry/pink. 11:30 Reassessment: Patient appears in no apparent distress at this time. Patient and/or eh3 family updated on plan of care and expected duration. Pain level reassessed. Patient is alert, oriented x 3, equal unlabored respirations, skin warm/dry/pink. 12:30 Reassessment: Patient appears in no apparent distress at this time. Patient and/or eh3 family updated on plan of care and expected duration. Pain level reassessed. Patient is alert, oriented x 3, equal unlabored respirations, skin warm/dry/pink. Vital Signs: 08:41 BP 109 / 82; Pulse 70; Resp 18 S; Temp 98(TE); Pulse Ox 100% ; Weight 108.86 kg (R); aa5 Height 5 ft. 11 in. (R); 09:10 BP 114 / 77; Pulse 75; Resp 18 S; Pulse Ox 100% on R/A; Pain 6/10; aa5 09:40 BP 115 / 71; Pulse 65; Resp 18; Pulse Ox 100% on R/A; eh3 10:30 BP 119 / 79; Pulse 67; Resp 18; Pulse Ox 100% on R/A; eh3 11:30 BP 115 / 69; Pulse 76; Resp 18; Pulse Ox 100% on R/A; eh3 12:30 BP 106 / 70; Pulse 76; Resp 18; Pulse Ox 100% on R/A; eh3 08:41 Body Mass Index 33.47 (108.86 kg, 180.34 cm) aa5 09:10 Pain Scale: Adult aa5 [place] Coma Score: 08:42 Eye Response: spontaneous(4). Motor Response: obeys commands(6). Verbal Response: aa5 oriented(5). Total: 15. Trauma Score (Adult): 08:42 Eye Response: spontaneous(1); Verbal Response: oriented(1); Motor Response: obeys aa5 commands(2); Systolic BP: > 89 mm Hg(4); Respiratory Rate: 10 to 29 per min(4); [place] Score: 15; Trauma Score: 12 ED Course: 08:41 Patient arrived in ED. aa5 08:42 Arm band placed on Patient placed in an exam room. aa5 08:42 Patient has correct armband on for positive identification. Bed in low position. Call aa5 light in reach. Side rails up X2. Adult w/ patient. 08:43 Triage completed. aa5 08:44 Amanda Sim [facility] sb4 08:44 Donny Olivier MD is Attending Physician. sb4 08:47 Patient maintains SpO2 saturation greater than 95% on room air. Thermoregulation: warm aa5 blanket given to patient. 08:48 Evelyne Huggins RN is Primary Nurse. aa5 09:16 Report given to RYAN Gross. aa5 09:26 Hip Left 2 View XRAY In Process Unspecified. EDMS 10:29 Radu Vallejo MD is Hospitalizing Provider. sb4 10:42 XRAY Chest (1 view) In Process Unspecified. EDMS 12:14 No provider procedures requiring assistance completed. Maintain EMS IV. Dressing eh3 intact. Good blood return noted. Site clean \\T\\ dry. Gauge \\T\\ site: 20g RAC. 12:56 Patient admitted, IV remains in place. eh3 Administered Medications: 09:10 Drug: Ondansetron IVP 4 mg Route: IVP; Site: right antecubital; aa5 11:13 Follow up: Response: No adverse reaction eh3 09:12 Drug: fentaNYL (PF) IVP 50 mcg Route: IVP; Site: right antecubital; aa5 11:13 Follow up: Response: No adverse reaction eh3 10:35 Drug: HYDROmorphone IVP 0.5 mg Route: IVP; Site: right antecubital; eh3 11:13 Follow up: Response: No adverse reaction eh3 12:09 Drug: HYDROmorphone IVP 0.5 mg Route: IVP; Site: right antecubital; eh3 12:58 Follow up: Response: No adverse reaction eh3 Medication: 12:15 VIS not applicable for this client. eh3 Outcome: 10:30 Decision to Hospitalize by Provider. sb4 12:57 Admitted to Med/surg accompanied by tech, family with patient, via stretcher, room 201, eh3 Report called to [place] 12:57 Condition: stable 12:57 Instructed on the need for admit. 13:01 Patient left the ED. eh3 Signatures: Dispatcher [employer] EDEvelyne Woodard, RYAN RN aa5 Ginny Flores RN RN eh3 Amanda Sim, PAMaria ElenaC PABenny sb4
[2022-10-24 10:41] LABS: Absolute Lymphocytes (CBC) 2.2 K/uL (0.7-4.9); Lymphocytes % 24.5 % (15.3-44.8); MCV 99.3 fL (80-100); MPV 9.5 fL (7.6-11.3); RBC Red Blood Cell Count 4.03 M/uL (4.33-5.43)
[2022-10-24 10:57] LABS: Potassium 4.1 mEq/L (3.5-5.1)
--- NOTE | 2022-10-24 10:57 | RAD REPORT ---
EXAM DESCRIPTION: Tonya Single View10/24/2022 10:40 am CLINICAL HISTORY: Preop for hip surgery COMPARISON: none FINDINGS: The lungs appear clear of acute infiltrate. The heart may be borderline enlarged IMPRESSION: No acute abnormalities displayed
[2022-10-24] MEDS ORDERED: ONDANSETRON 4 MG/2 ML VIAL IV PRN (11:25)
--- NOTE | 2022-10-24 11:29 | P.HP ---
Certification for Inpatient Patient admitted to: Inpatient With expected LOS: >2 Midnights Patient will require the following post-hospital care: None Practitioner: I am a practitioner with admitting privileges, knowledge of patient current condition, hospital course, and medical plan of care. Services: Services provided to patient in accordance with Admission requirements found in Title 42 Section 412.3 of the Code of Federal Regulations Patient History Date of Service: 10/24/22 Reason for admission: Left hip pain. History of Present Illness: Patient is a 67-year-old male with a past medical history significant for hypertension, hypothyroidism, hyperlipidemia, YUDELKA who presents with complaint of left hip pain status post fall. Patient reported that he was picking up garbage this morning when his foot got tangled and he fell. Patient reported he fell on his left side. Patient reported that he felt pain in the left hip and was unable to get up. Patient denies hitting his head or losing consciousness. Patient rated pain as 8/10 in severity and described pain as aching in quality. Patient denies any other signs and symptoms. Symptoms are aggravated by movement and relieved by nothing. Patient was brought to the hospital for medical evaluation. Allergies ibuprofen Allergy (Verified 10/24/22 11:34) Itching Home Medications: Atorvastatin Calcium 1 tab PO BEDTIME 10/24/22 Carvedilol [Coreg] 1 tab PO BID 10/24/22 Esomeprazole Mag Trihydrate [Nexium] 1 tab PO BEDTIME 10/24/22 Levothyroxine [Synthroid*] 1 tab PO DAILY 10/24/22 Metformin HCl [Glucophage*] 1 tab PO BID 10/24/22 - Past Medical/Surgical History -: HTN -: HLD -: YUDELKA -: Hypothyroidism -: Borderline diabetes -: Splenectomy -: Bilateral rotator cuff surgery - Family History Mother -: Diabetes Father -: Hypertension, Cancer - Social History Smoking Status: Never smoker Alcohol use: No CD- Drugs: No Caffeine use: No Place of Residence: Home Review of Systems General: Unremarkable Eyes: Unremarkable ENT: Unremarkable Respiratory: Unremarkable Cardiovascular: Unremarkable Gastrointestinal: Unremarkable Genitourinary: Unremarkable Musculoskeletal: Other (Left hip pain) Integumentary: Unremarkable Neurological: Unremarkable Lymphatics: Unremarkable Physical Examination - Physical Exam General: Alert, In no apparent distress, Oriented x3, Cooperative HEENT: Atraumatic, PERRLA, Mucous membr. moist/pink, EOMI, Sclerae nonicteric Neck: Supple, 2+ carotid pulse no bruit, No LAD, Without JVD or thyroid abnormality Respiratory: Clear to auscultation bilaterally, Normal air movement Cardiovascular: No edema, Regular rate/rhythm, Normal S1 S2 Capillary refill: <2 Seconds Gastrointestinal: Normal bowel sounds, Non-distended, No tenderness Musculoskeletal: Tenderness (Left hip) Integumentary: No rashes, No significant lesion Neurological: Normal speech, Normal tone, Normal affect Lymphatics: No axilla or inguinal lymphadenopathy - Studies Laboratory Data (last 24 hrs) 10/24/22 10:28: WBC 8.90, Hgb 13.4 L, Hct 40.0, Plt Count 236 10/24/22 10:28: Sodium 135 L, Potassium 4.1, BUN 15, Creatinine 1.33 H, Glucose 119 H Assessment and Plan - Plan --Left hip fracture. Hip imaging indicates Intertrochanteric/greater trochanteric fracture left femur. Orthopedic surgeon consulted. Plans left hip surgery in AM. We will await further recommendation from surgeon. -- Acute pain. We will manage pain with current pain medication regimen. --Hypertension. Stable. Continue home medication. --Hypothyroidism. Continue Synthroid. --YUDELKA. CPAP at bedtime. --Hyperlipidemia. Continue statin. --GERD. Continue home medications. --Class I obesity. Likely secondary to excess calories intake. Patient counseled on weight reduction, diet and excise therapy. --DVT prophylaxis with heparin subQ Discharge Plan: Home Plan to discharge in: Greater than 2 days - Advance Directives Does patient have a Living Will: No Does patient have a Durable POA for Healthcare: No - Code Status/Comfort Care Code Status Assessed: Yes Physician Review: Patient Assessed, Agree with Above Assessment and Plan Critical Care: No
[2022-10-24 12:18] LABS: Magnesium 1.9 mg/dL (1.6-2.4); Phosphorus 2.3 mg/dL (2.5-4.9); Troponin High Sensitivity 3.5 pg/mL (<58.9)
[2022-10-24] MEDS: MORPHINE 4 MG/ML SYR IV PRN ×2 (13:29→17:38)
[2022-10-24 13:40] VITALS: BMI 33.5
[2022-10-24] MEDS ORDERED: PNEUMOCOCCAL VACCINE 0.5 ML IMVAC ONE (15:00)
[2022-10-24] MEDS: ACETAMINOPHEN 325 MG TABLET PO PRN ×2 (16:00→21:47)
--- NOTE | 2022-10-24 18:24 | P.CNS ---
Date of Consult: 10/24/22 Chief Complaint: Left hip pain. History of Present Illness: at 7:10 am today 10/24/2022 while rolling his trash can down to the curb at home on a downward incline, he tripped on his crocs sandles and fell on the concrete, He could not get up, he tried to crawl for hilp, eventually he flagged down a passing neighbot that got him help, he was transported to the ED via ambulance. he has HTN, GERD, DM, and sleep apnea. Allergies ibuprofen Allergy (Verified 10/24/22 11:34) Itching Home Medications: Atorvastatin Calcium 1 tab PO BEDTIME 10/24/22 Carvedilol [Coreg] 1 tab PO BID 10/24/22 Esomeprazole Mag Trihydrate [Nexium] 1 tab PO BEDTIME 10/24/22 Levothyroxine [Synthroid*] 1 tab PO DAILY 10/24/22 Metformin HCl [Glucophage*] 1 tab PO BID 10/24/22 - Past Medical/Surgical History Diabetic: No -: HTN -: HLD -: YUDELKA -: Hypothyroidism -: Borderline diabetes -: Hypothyroidism -: Skin CA -: Splenectomy -: Bilateral rotator cuff surgery -: Bilateral Rotator Cuff replacement -: Bilateral MCL Replacement - Family History Mother Medical History: Diabetes Father Medical History: Hypertension, Cancer - Social History Alcohol use: No CD- Drugs: No Caffeine use: No Place of Residence: Home Review of Systems 10-point ROS is otherwise unremarkable Physical Examination Temp Pulse Resp BP Pulse Ox 100.4 F 86 22 H 133/82 96 10/24/22 17:11 10/24/22 16:00 10/24/22 16:00 10/24/22 16:00 10/24/22 16:00 General: Alert, In no apparent distress HEENT: Atraumatic, Normocephalic Neck: Supple Respiratory: Normal air movement Capillary refill: <2 Seconds Musculoskeletal: Other (heft hip pain) Integumentary: No rashes Neurological: Normal speech Laboratory Data (last 24 hrs) 10/24/22 10:28: WBC 8.90, Hgb 13.4 L, Hct 40.0, Plt Count 236 10/24/22 10:28: Sodium 135 L, Potassium 4.1, BUN 15, Creatinine 1.33 H, Glucose 119 H Imagings Data: Name: TAYLOR SIMPSON Acct Number: [id number] : 1955 Age: 67 Sex: M Unit Number: [id number] Ord [facility] Care Dr: NONE Status: REG ER ER Exam Date: 10/24/22 Reason for Exam: Fall Report Status: Signed EXAM DESCRIPTION: RAD - Hip Left 2 View - 10/24/2022 9:24 am CLINICAL HISTORY: Left hip pain status post injury FINDINGS: Intertrochanteric/greater trochanteric fracture left femur. Fracture fragments by 1 centimeter. No dislocation Dictated By: Gigi Parada MD 10/24/22 0945 Signed By: Gigi Parada MD 10/24/22 094 - Problems (1) Intertrochanteric fracture of left femur Current Visit: Yes Status: Acute Qualifiers: Encounter type: initial encounter Fracture type: closed Fracture alignment: displaced Qualified Code(s): S72.142A - Displaced intertrochanteric fracture of left femur, initial encounter for closed fracture
[2022-10-24] MEDS ORDERED: HOME MED 1 EA UNK (Esomeprazole Mag Trihydrate [Nexium] 40 MG Capsule.Dr) PO SCH (21:00)
[2022-10-24] MEDS: ATORVASTATIN 20 MG TAB PO SCH (21:10)
[2022-10-24] MEDS: carvediloL 12.5 MG TAB PO SCH (21:10)
[2022-10-24] MEDS: PANTOPRAZOLE 40MG TABLET PO SCH (21:11)
[2022-10-24] MEDS: HEPARIN 5000 UNIT/ML 1 ML VIAL SQ SCH (21:18)
[2022-10-24] MEDS: HYDROMORPHONE HCL 1 MG/ML INJ IV PRN (21:42)
[2022-10-25 04:06] LABS: Absolute Lymphocytes (CBC) 3.5 K/uL (0.7-4.9); Hematocrit 38.8 % (39.6-49.0); Lymphocytes % 31.2 % (15.3-44.8); MCV 99.1 fL (80-100); RBC Red Blood Cell Count 3.91 M/uL (4.33-5.43)
[2022-10-25 04:14] LABS: Phosphorus 4.1 mg/dL (2.5-4.9); Potassium 4.1 mEq/L (3.5-5.1)
[2022-10-25] MEDS: LEVOTHYROXINE SOD 0.112 MG TAB PO SCH (06:08)
[2022-10-25] MEDS: HYDROMORPHONE HCL 1 MG/ML INJ IV PRN ×3 (06:08→14:16)
[2022-10-25 07:22] LABS: Urine Bilirubin NEGATIVE (Negative); Urine Clarity Clear (Clear); Urine Color Yellow (Yellow); Urine Glucose NEGATIVE (Negative)
[2022-10-25 07:23] LABS: Urine Blood Trace (Negative); Urine Protein Negative (Negative); Urine Urobilinogen 0.2 mg/dL (0.2-1.0)
[2022-10-25 07:24] LABS: Urine Bacteria None Seen /HPF (<20); Urine Mucus Slight /HPF (None Seen)
[2022-10-25] MEDS: carvediloL 12.5 MG TAB PO SCH ×2 (08:13→20:36)
[2022-10-25] MEDS: HEPARIN 5000 UNIT/ML 1 ML VIAL SQ SCH (09:00)
--- NOTE | 2022-10-25 13:17 | EKG ---
Test Date: 2022-10-24 Test Time: 10:27:07 Ballast Regulator Operator: RAFA MEASUREMENT RESULTS: Intervals: Rate: 74 OH: 206 QRSD: 90 QT: 394 QTc: 437 [place]: P: 74 OH: 206 QRS: 34 T: 33 INTERPRETIVE STATEMENTS: Normal sinus rhythm Normal ECG No previous ECG available for comparison Electronically Signed On 10-25-22 13:15:45 CDT by Jermaine Rodriguez
[2022-10-25] MEDS ORDERED: NA CHLORIDE 0.9% 0 ML ONE (16:00)
[2022-10-25] MEDS ORDERED: NA CHLORIDE 0.9% 1,000 ML ONE (16:01)
[2022-10-25] MEDS ORDERED: SUCCINYLCHOLINE 20 MG/ML (10 ML) IV ONE (16:25)
[2022-10-25] MEDS ORDERED: MIDAZOLAM HCL 2 MG/2 ML INJ ONE (16:40)
[2022-10-25] MEDS ORDERED: FENTANYL CITR 250 MCG/5 ML ONE (16:40)
[2022-10-25] MEDS ORDERED: propofoL 200 MG/20 ML VIAL IV ONE (16:40)
[2022-10-25] MEDS ORDERED: CEFAZOLIN SODIUM 2 GM/VIAL ONE (16:41)
[2022-10-25] MEDS ORDERED: TRANEXAMIC ACID 1,000 MG/10 ML VIAL IV ONE (16:42)
[2022-10-25] MEDS: MEPERIDINE HCL 25 MG/ML SYR ONE ×2 (18:07→19:00)
--- NOTE | 2022-10-25 18:10 | CON ---
Reason For Consultation: Left hip fracture. History Of Present Illness: Mr. Smith is a 67-year-old gentleman, who sustained a fall and sustaine d intertrochanteric left hip fracture. He was wearing flip-flops we were asked to evaluat e for his left hip. Past Medical History: Significant for hypertensive disorder, moderate obesity, hypercholesterolemia, decreased thyroid function. Allergies: HE IS ALLERGIC TO IBUPROFEN. Physical Examination: General: BMI is 33.4. He is supine in bed. Appears to be neurovascular intact. Alert and oriented x3. Abdomen: Obese. Extremities: Left lower extremity is externally rotated. He is not moved secondary to known fractur e. Laboratory Data: X-rays revealed multi part intertrochanteric left hip fracture and surgical wound. Plan: Intramedullary rodding of left hip. VIRGILIO/ANGEL Voice ID: [id number] Report ID: [id number]
[2022-10-25] MEDS ORDERED: KETOROLAC 30 MG/ML INJ ONE (18:17)
[2022-10-25] MEDS: FENTANYL CITR 100 MCG/2 ML ONE ×3 (18:24→18:33)
--- NOTE | 2022-10-25 18:31 | OP ---
DOS: 10/25/2022 Surgeon: Gigi Yin MD Yardage Control Clerk: research program assistant, NILA Hannon. Preoperative Diagnosis: Left intertrochanteric hip fracture. Postoperative Diagnosis: Left intertrochanteric hip fracture. Procedure Performed: Left IT hip fracture . Complications: None. Disposition: To recovery room, stable. Procedure In Detail: The patient was taken to the operative suite, placed in supine position, and induced anesthesia. Estimated Blood Loss was minimal throughout this case. I did a skin incision over the greater trochanter. Hemostasis was verified. Dissection to the tensor fascia mikayla was performed. Piriformis was encountered. The trochanter reaming awl was utilized to introduce the guidewire. A 125 x 11 mm x 180 mm jared was then introduced and verified on biplanar radiography. A 105 mm lag screw was then placed in subchondral bone of the femoral head. The distal interlocking was performed with a 36 mm screw. The patient tolerated the procedure well, reversed from anesthesia after layered closure was being performed at the time of this dictation. VIRGILIO/ANGEL Voice ID: [id number] Report ID: [id number] ELIZABET
--- NOTE | 2022-10-25 18:37 | RAD REPORT ---
EXAM DESCRIPTION: RAD - Pelvis - 10/25/2022 6:14 pm CLINICAL HISTORY: Left femoral fracture FINDINGS: Compression screw and intramedullary jared affix a left femoral fracture. No dislocation
[2022-10-25] MEDS: HYDROMORPHONE HCL 1 MG/ML INJ ONE ×5 (18:46→19:12)
--- NOTE | 2022-10-25 19:04 | RAD REPORT ---
EXAM DESCRIPTION: Hip in OR Left 2 View10/25/2022 6:52 pm CLINICAL HISTORY: Device placement endotracheal tube placement IMPRESSION: Thirty-three intraoperative fluoroscopic spot images. Fluoroscopy time 1.6 minutes Left hip rodding performed. Surgery done by Dr. Bains
--- NOTE | 2022-10-25 20:05 | P.PN ---
Subjective Date of Service: 10/25/22 Chief Complaint: Left hip pain. No acute events overnight. He reports left hip pain. He denies any chest pain, palpitations, or shortness of breath. Plan for hip repair today with Dr. Yin this evening. He is NPO past 10:00 am. Review of Systems 10-point ROS is otherwise unremarkable Musculoskeletal: Leg Pain (left hip) Physical Examination - Vital Signs Temperature: 98.9 F Blood Pressure: 105/70 Pulse: 74 Respirations: 16 Pulse Ox (%): 99 - Physical Exam General: Alert, In no apparent distress, Oriented x3 HEENT: Atraumatic, Mucous membr. moist/pink, Sclerae nonicteric Neck: JVD not distended Respiratory: Clear to auscultation bilaterally, Normal air movement Cardiovascular: No edema, Regular rate/rhythm, Normal S1 S2, No gallops, No rubs, No murmurs Gastrointestinal: Normal bowel sounds, Soft and benign, Non-distended, No tenderness, No rebound, No guarding Musculoskeletal: No clubbing, Tenderness (left hip) Integumentary: No rashes Neurological: Normal speech, Normal affect Assessment And Plan - Plan # Traumatic Ground-Level Fall complicated by Left Intertrochanteric/Greater Trochanteric Femur Fracture - Left hip x-ray = "intertrochanteric/greater trochanteric fracture left femur. Fracture fragments by 1 centimeter. No dislocation." - Orthopedic Surgery consulted and he was evaluated by Dr. Yin - recommendations appreciated - Plan for surgery this evening - PRN pain medicine - NPO past 10:00 am - Will require post-operative PT # Hypertension - Continue home carvedilol # Hypothyroidism - Continue home levothyroxine # Hyperlipidemia - Continue home atorvastatin # Obstructive Sleep Apnea - May use home CPAP Radu Vallejo M.D.
[2022-10-25] MEDS: NACHLORIDE 0.45% 1,000 ML IV SCH (20:34)
[2022-10-25] MEDS: ATORVASTATIN 20 MG TAB PO SCH (20:35)
[2022-10-25] MEDS: PANTOPRAZOLE 40MG TABLET PO SCH (20:35)
[2022-10-25] MEDS ORDERED: PNEUMOCOCCAL VACCINE 0.5 ML IMVAC ONE (21:00)
[2022-10-26] MEDS: CEFAZOLIN 1 GM in NA CHLORIDE 0.9% 50 ML IVPB SCH ×2 (01:20→07:59)
[2022-10-26 04:03] LABS: Absolute Lymphocytes (CBC) 3.5 K/uL (0.7-4.9); Hematocrit 37.9 % (39.6-49.0); Lymphocytes % 29.9 % (15.3-44.8); MCV 99.7 fL (80-100); MPV 9.6 fL (7.6-11.3)
[2022-10-26 04:15] LABS: Potassium 4.2 mEq/L (3.5-5.1)
[2022-10-26] MEDS: MORPHINE 2 MG/ML SYR IV PRN ×3 (05:34→16:08)
[2022-10-26] MEDS: LEVOTHYROXINE SOD 0.112 MG TAB PO SCH (05:34)
[2022-10-26] MEDS: ENOXAPARIN 30 MG/0.3 ML SQ SCH ×2 (05:34→17:53)
[2022-10-26] MEDS ORDERED: PHENOL 1.4% ORAL SPRAY 180ML MM PRN (07:07)
[2022-10-26] MEDS: HYDROCODONE/APAP 10/325 TAB PO PRN ×3 (07:20→21:35)
[2022-10-26] MEDS: carvediloL 12.5 MG TAB PO SCH ×2 (07:59→21:30)
[2022-10-26] MEDS: ACETAMINOPHEN 325 MG TABLET PO PRN (17:52)
[2022-10-26] MEDS ORDERED: CEFAZOLIN 1 GM in NA CHLORIDE 0.9% 50 ML IVPB SCH (18:00)
--- NOTE | 2022-10-26 18:51 | P.PN ---
Subjective Date of Service: 10/26/22 Chief Complaint: Left hip pain. Subjective: No new changes, Tolerating diet, Improving, Working w/ PT Review of Systems 10-point ROS is otherwise unremarkable Physical Examination - Vital Signs Temperature: 100.8 F Blood Pressure: 116/75 Pulse: 78 Respirations: 19 Pulse Ox (%): 95 - Studies hbg12/hct37 Assessment And Plan - Current Problems (Diagnosis) (1) Intertrochanteric fracture of left femur Current Visit: Yes Status: Acute Qualifiers: Encounter type: subsequent encounter Fracture type: closed Fracture alignment: displaced Fracture healing: with routine healing Qualified Code(s): S72.142D - Displaced intertrochanteric fracture of left femur, subsequent encounter for closed fracture with routine healing Plan to discharge in: 24 Hours Physician Review: Patient Assessed, Agree with Above Assessment and Plan
[2022-10-26] MEDS: ATORVASTATIN 20 MG TAB PO SCH (21:30)
[2022-10-26] MEDS: PANTOPRAZOLE 40MG TABLET PO SCH (21:31)
--- NOTE | 2022-10-26 22:24 | P.PN ---
Subjective Date of Service: 10/26/22 Chief Complaint: Left hip pain. POD#1 from left femur fracture repair. He is doing well this morning. He reports that his pain is well-controlled. He has been working well with PT, who recommended inpatient rehab placement. Appreciate CM assistance. Review of Systems 10-point ROS is otherwise unremarkable Musculoskeletal: Leg Pain (left hip) Physical Examination - Vital Signs Temperature: 97.5 F Blood Pressure: 116/69 Pulse: 87 Respirations: 18 Pulse Ox (%): 98 Assessment And Plan - Plan - Physical Exam General: Alert, In no apparent distress, Oriented x3 HEENT: Atraumatic, Mucous membr. moist/pink, Sclerae nonicteric Neck: JVD not distended Respiratory: Clear to auscultation bilaterally, Normal air movement Cardiovascular: No edema, Regular rate/rhythm, No murmurs Gastrointestinal: Normal bowel sounds, Soft, Non-distended, No tenderness Musculoskeletal: No clubbing, Tenderness (left hip) Integumentary: No rashes Neurological: Normal speech, Normal affect # Traumatic Ground-Level Fall complicated by Left Intertrochanteric/Greater Trochanteric Femur Fracture - Left hip x-ray = "intertrochanteric/greater trochanteric fracture left femur. Fracture fragments by 1 centimeter. No dislocation." - Orthopedic Surgery consulted and he was evaluated by Dr. Yin - recommendations appreciated - s/p left hip repair on 10/25/2022 - PRN pain medicine - PT consulted - recommended inpatient rehab. Appreciate CM assistance # Hypertension - Continue home carvedilol # Hypothyroidism - Continue home levothyroxine # Hyperlipidemia - Continue home atorvastatin # Obstructive Sleep Apnea - May use home CPAP Radu Vallejo M.D.
[2022-10-27 03:53] LABS: Absolute Lymphocytes (CBC) 5.6 K/uL (0.7-4.9); Hematocrit 37.1 % (39.6-49.0); Lymphocytes % 40.9 % (15.3-44.8); MCV 99.4 fL (80-100); MPV 10.3 fL (7.6-11.3); RBC Red Blood Cell Count 3.73 M/uL (4.33-5.43)
[2022-10-27 04:05] LABS: Potassium 4.2 mEq/L (3.5-5.1)
[2022-10-27] MEDS: NACHLORIDE 0.45% 1,000 ML IV SCH (04:52)
[2022-10-27] MEDS: HYDROCODONE/APAP 10/325 TAB PO PRN ×3 (04:53→21:20)
[2022-10-27] MEDS: LEVOTHYROXINE SOD 0.112 MG TAB PO SCH (09:04)
[2022-10-27] MEDS: carvediloL 12.5 MG TAB PO SCH ×2 (09:04→21:19)
[2022-10-27] MEDS: ENOXAPARIN 30 MG/0.3 ML SQ SCH ×2 (09:04→17:14)
[2022-10-27 09:55] VITALS: O2SAT 96
[2022-10-27] MEDS: Ringers Lactate 1,000 ML IV SCH (17:18)
[2022-10-27] MEDS ORDERED: Ringers Lactate 500 ML IV ONE (18:30)
[2022-10-27] MEDS: PANTOPRAZOLE 40MG TABLET PO SCH (21:19)
[2022-10-27] MEDS: ATORVASTATIN 20 MG TAB PO SCH (21:20)
--- NOTE | 2022-10-28 00:13 | P.PN ---
Subjective Date of Service: 10/28/22 Chief Complaint: Left hip pain. POD#2 from left femur fracture repair. He has been working well with PT. Appreciate CM assistance with placement. Review of Systems 10-point ROS is otherwise unremarkable Musculoskeletal: Leg Pain (left hip) Physical Examination - Vital Signs Temperature: 99.0 F Blood Pressure: 115/76 Pulse: 78 Respirations: 16 Pulse Ox (%): 98 Assessment And Plan - Plan - Physical Exam General: Alert, In no apparent distress, Oriented x3 HEENT: Atraumatic, Mucous membr. moist/pink, Sclerae nonicteric Neck: JVD not distended Respiratory: Clear to auscultation bilaterally, Normal air movement Cardiovascular: No edema, Regular rate/rhythm, No murmurs Gastrointestinal: Normal bowel sounds, Soft, Non-distended, No tenderness Musculoskeletal: No clubbing, Tenderness (left hip) Integumentary: No rashes Neurological: Normal speech, Normal affect # Traumatic Ground-Level Fall complicated by Left Intertrochanteric/Greater Trochanteric Femur Fracture - Left hip x-ray = "intertrochanteric/greater trochanteric fracture left femur. Fracture fragments by 1 centimeter. No dislocation." - Orthopedic Surgery consulted and he was evaluated by Dr. Yin - recommendations appreciated - s/p left hip repair on 10/25/2022 - PRN pain medicine - PT consulted - recommended inpatient rehab. Appreciate CM assistance # Orthostatic Hypotension with history of Hypertension - LR 500 mL x 1, followed by LR @ 100 mL/hr - Hold home carvedilol # Hypothyroidism - Continue home levothyroxine # Hyperlipidemia - Continue home atorvastatin # Obstructive Sleep Apnea - May use home CPAP Radu Vallejo M.D.
[2022-10-28] MEDS: Ringers Lactate 1,000 ML IV SCH ×3 (01:36→21:04)
[2022-10-28 02:59] LABS: Absolute Lymphocytes (CBC) 6.8 K/uL (0.7-4.9); Hematocrit 36.3 % (39.6-49.0); Lymphocytes % 43.6 % (15.3-44.8); MCV 99.5 fL (80-100); MPV 9.8 fL (7.6-11.3); RBC Red Blood Cell Count 3.65 M/uL (4.33-5.43)
[2022-10-28 03:26] LABS: Potassium 4.3 mEq/L (3.5-5.1)
[2022-10-28] MEDS: ENOXAPARIN 30 MG/0.3 ML SQ SCH ×2 (06:11→19:24)
[2022-10-28] MEDS: LEVOTHYROXINE SOD 0.112 MG TAB PO SCH (06:11)
[2022-10-28 08:18] LABS: White Blood Cell Scan DIFF (OK)
[2022-10-28 08:19] LABS: Blood Morphology Comment NOT SEEN (NOT SEEN); Platelet Estimate ADEQ
[2022-10-28] MEDS: HYDROCODONE/APAP 10/325 TAB PO PRN (08:43)
--- NOTE | 2022-10-28 20:24 | P.PN ---
Subjective Date of Service: 10/28/22 Chief Complaint: Left hip pain. POD#2 left hip intramedullary jared fixation. No new changes. Awaiting placement for inpatient rehab. Review of Systems 10-point ROS is otherwise unremarkable Musculoskeletal: Leg Pain (Left hip) Physical Examination - Vital Signs Temperature: 98.9 F Blood Pressure: 122/68 Pulse: 77 Respirations: 18 Pulse Ox (%): 95 Assessment And Plan - Plan - Physical Exam General: Alert, In no apparent distress, Oriented x3 HEENT: Atraumatic, Mucous membr. moist/pink, Sclerae nonicteric Neck: JVD not distended Respiratory: Clear to auscultation bilaterally, Normal air movement Cardiovascular: No edema, Regular rate/rhythm, No murmurs Gastrointestinal: Normal bowel sounds, Soft, Non-distended, No tenderness Musculoskeletal: No clubbing, Tenderness (left hip) Integumentary: No rashes Neurological: Normal speech, Normal affect # Traumatic Ground-Level Fall complicated by Left Intertrochanteric/Greater Trochanteric Femur Fracture - Left hip x-ray = "intertrochanteric/greater trochanteric fracture left femur. Fracture fragments by 1 centimeter. No dislocation." - Orthopedic Surgery consulted and he was evaluated by Dr. Yin - recommendations appreciated - s/p left hip intramedullary jared fixation on 10/25/2022 - PRN pain medicine - PT consulted - recommended inpatient rehab. Appreciate CM assistance # Orthostatic Hypotension with history of Hypertension - LR 500 mL x 1, followed by LR @ 100 mL/hr - Hold home carvedilol # Hypothyroidism - Continue home levothyroxine # Hyperlipidemia - Continue home atorvastatin # Obstructive Sleep Apnea - May use home CPAP Radu Vallejo M.D.
[2022-10-28] MEDS: ACETAMINOPHEN 325 MG TABLET PO PRN (21:03)
[2022-10-28] MEDS: ATORVASTATIN 20 MG TAB PO SCH (21:04)
[2022-10-28] MEDS: PANTOPRAZOLE 40MG TABLET PO SCH (21:04)
[2022-10-29 03:30] LABS: Absolute Lymphocytes (CBC) 6.8 K/uL (0.7-4.9); Hematocrit 36.5 % (39.6-49.0); Lymphocytes % 44.6 % (15.3-44.8); MCV 99.3 fL (80-100); MPV 9.7 fL (7.6-11.3); RBC Red Blood Cell Count 3.68 M/uL (4.33-5.43)
[2022-10-29 03:44] LABS: Potassium 4.1 mEq/L (3.5-5.1)
[2022-10-29] MEDS: LEVOTHYROXINE SOD 0.112 MG TAB PO SCH (05:56)
[2022-10-29] MEDS: ENOXAPARIN 30 MG/0.3 ML SQ SCH ×2 (05:56→17:06)
[2022-10-29] MEDS: ACETAMINOPHEN 325 MG TABLET PO PRN ×2 (05:58→17:12)
[2022-10-29] MEDS: Ringers Lactate 1,000 ML IV SCH (06:54)
--- NOTE | 2022-10-29 18:34 | P.PN ---
Subjective Date of Service: 10/29/22 Chief Complaint: Left hip pain. POD#3 left hip intramedullary jared fixation. He is doing well - no new changes. Awaiting placement for inpatient rehab. Review of Systems 10-point ROS is otherwise unremarkable Musculoskeletal: Leg Pain (left hip) Physical Examination - Vital Signs Temperature: 97.9 F Blood Pressure: 122/71 Pulse: 79 Respirations: 14 Pulse Ox (%): 98 Assessment And Plan - Plan - Physical Exam General: Alert, In no apparent distress, Oriented x3 HEENT: Atraumatic, Sclerae nonicteric Respiratory: Clear to auscultation bilaterally, Normal air movement Cardiovascular: No edema, Regular rate/rhythm, No murmurs Gastrointestinal: Soft, Non-distended, No tenderness Musculoskeletal: No clubbing, Tenderness (left hip - improving) Integumentary: No rashes Neurological: Normal speech, Normal affect # Traumatic Ground-Level Fall complicated by Left Intertrochanteric/Greater Trochanteric Femur Fracture - Left hip x-ray = "intertrochanteric/greater trochanteric fracture left femur. Fracture fragments by 1 centimeter. No dislocation." - Orthopedic Surgery consulted and he was evaluated by Dr. Yin - recommendations appreciated - s/p left hip intramedullary jared fixation on 10/25/2022 - PRN pain medicine - PT consulted - recommended inpatient rehab. Appreciate CM assistance # Orthostatic Hypotension with history of Hypertension - LR 500 mL x 1, followed by LR @ 100 mL/hr - Hold home carvedilol # Hypothyroidism - Continue home levothyroxine # Hyperlipidemia - Continue home atorvastatin # Obstructive Sleep Apnea - May use home CPAP Radu Vallejo M.D.
[2022-10-29] MEDS: ATORVASTATIN 20 MG TAB PO SCH (20:26)
[2022-10-29] MEDS: PANTOPRAZOLE 40MG TABLET PO SCH (20:26)
--- NOTE | 2022-10-29 20:44 | P.PN ---
Date of Service: 10/30/22 Subjective: ROS: 10 point ROS as noted above, otherwise negative Physical Exam: Gen: Alert,oriented, NAD HEENT: normal conjunctiva, sclera anicteric CV: regular rate & rhythm, no edema Pulm: non-labored respirations on room air, clear bilaterally Abd: soft, non-tender, non-distended MSK: left hip tenderness Neuro: normal speech, normal affect, moves all extremities Problem List: 1. Left Intertrochanteric/Greater Trochanteric Femur Fracture, now s/p left hip intramedullary jared fixation (10/25) 2. Traumatic Fall 3. Orthostatic Hypotension with history of Hypertension 4. Hypothyroidism 5. Hyperlipidemia 6. Obstructive Sleep Apnea PLAN Left hip x-ray (10/24): intertrochanteric/greater trochanteric fracture left femur. Orthopedic Surgery consulted s/p left hip intramedullary jared fixation (10/25) PRN pain medicine PT consulted ss/cm consulted for inpatient rehab Hold home carvedilol Continue home levothyroxine Continue home atorvastatin May use home CPAP VTE: Lovenox
[2022-10-30 03:35] LABS: Absolute Lymphocytes (CBC) 5.3 K/uL (0.7-4.9); Hematocrit 36.4 % (39.6-49.0); Lymphocytes % 38.9 % (15.3-44.8); MCV 98.5 fL (80-100); MPV 9.8 fL (7.6-11.3)
[2022-10-30] MEDS: ENOXAPARIN 30 MG/0.3 ML SQ SCH ×2 (05:33→18:07)
[2022-10-30] MEDS: LEVOTHYROXINE SOD 0.112 MG TAB PO SCH (05:33)
[2022-10-30] MEDS: PANTOPRAZOLE 40MG TABLET PO SCH (21:06)
[2022-10-30] MEDS: ATORVASTATIN 20 MG TAB PO SCH (21:06)
[2022-10-30] MEDS: ACETAMINOPHEN 325 MG TABLET PO PRN (21:08)
[2022-10-31] MEDS: LEVOTHYROXINE SOD 0.112 MG TAB PO SCH (05:42)
[2022-10-31] MEDS: ENOXAPARIN 30 MG/0.3 ML SQ SCH ×2 (05:42→16:59)
[2022-10-31] MEDS: ACETAMINOPHEN 325 MG TABLET PO PRN (18:24)
[2022-10-31] MEDS: ATORVASTATIN 20 MG TAB PO SCH (21:13)
[2022-10-31] MEDS: PANTOPRAZOLE 40MG TABLET PO SCH (21:14)
[2022-11-01] MEDS: LEVOTHYROXINE SOD 0.112 MG TAB PO SCH (06:42)
[2022-11-01] MEDS: ENOXAPARIN 30 MG/0.3 ML SQ SCH ×2 (06:45→17:20)
[2022-11-01] MEDS: ACETAMINOPHEN 325 MG TABLET PO PRN ×2 (09:25→21:29)
[2022-11-01] MEDS: PANTOPRAZOLE 40MG TABLET PO SCH (21:27)
[2022-11-01] MEDS: ATORVASTATIN 20 MG TAB PO SCH (21:27)
[2022-11-02] MEDS: ENOXAPARIN 30 MG/0.3 ML SQ SCH ×2 (06:25→17:00)
[2022-11-02] MEDS: LEVOTHYROXINE SOD 0.112 MG TAB PO SCH (06:25)
[2022-11-02] MEDS: ACETAMINOPHEN 325 MG TABLET PO PRN (17:01)
[2022-11-02] MEDS: ATORVASTATIN 20 MG TAB PO SCH (20:39)
[2022-11-02] MEDS: PANTOPRAZOLE 40MG TABLET PO SCH (20:40)
[2022-11-02] MEDS: HYDROCODONE/APAP 10/325 TAB PO PRN (20:51)
[2022-11-03] MEDS: ENOXAPARIN 30 MG/0.3 ML SQ SCH (06:11)
[2022-11-03] MEDS: LEVOTHYROXINE SOD 0.112 MG TAB PO SCH (06:11)
[2022-11-03 09:01] VITALS: BP 111/71; TEMP 98.5
== END 2022-11-03 13:41 | disposition home or self-care (01) | DRG 536 ==
LOC: ER 08:41 → ERHOLD 11:15 → 2ND 12:45
PROVIDERS: ADMIT Internal Medicine; ATTEND Hospitalist
PROC: 5A09457 Assistance with Respiratory Ventilation, 24-96 Consecutive Hours, Continuous Positive Airway Pressure (ICD-10-PCS; principal; 2022-10-24)
DX: S72.142A Displaced intertrochanteric fracture of left femur, initial encounter for closed fracture (principal); I10 Essential (primary) hypertension; I95.1 Orthostatic hypotension; E03.9 Hypothyroidism, unspecified; G47.33 Obstructive sleep apnea (adult) (pediatric); E66.9 Obesity, unspecified; E78.00 Pure hypercholesterolemia, unspecified; Z71.3 Dietary counseling and surveillance; Z88.8 Allergy status to other drugs, medicaments and biological substances; Z79.02 Long term (current) use of antithrombotics/antiplatelets; Z79.84 Long term (current) use of oral hypoglycemic drugs; Z90.81 Acquired absence of spleen; Z98.52 Vasectomy status; Z68.33 Body mass index [BMI] 33.0-33.9, adult; Z79.899 Other long term (current) drug therapy; Z79.890 Hormone replacement therapy; W01.0XXA Fall on same level from slipping, tripping and stumbling without subsequent striking against object, initial encounter; Y92.019 Unspecified place in single-family (private) house as the place of occurrence of the external cause; Y99.9 Unspecified external cause status; Y93.01 Activity, walking, marching and hiking
CPT/HCPCS: 36415; 71045; 72170; 80048; 80061; 81001; 82947; 83036; 83735; 84100; 84484; 85025; 93005; 96374; 96375; 97110; 97116; 97161; 97165; 97530; 99285; J0690; J1170; J1644; J1650; J2175; J2250; J2270; J2405; J2704; J3010; J7030; J7120